=== PATIENT | male | born 1960 | race Caucasian/White ===

== ENCOUNTER → 2019-12-02 | Outpatient (CLI) | payer OTHER ==
[2019-12-02] MEDS: ALBUTEROL SULFATE 2.5 MG/3 ML NEBU. NEB ONE (08:10)
== END | disposition home or self-care (01) ==
LOC: PF 07:31
PROVIDERS: ATTEND Surgery
DX: R06.2 Wheezing (principal); R06.00 Dyspnea, unspecified; F17.210 Nicotine dependence, cigarettes, uncomplicated
CPT/HCPCS: 94060; 94640; J7613

== ENCOUNTER 2019-12-17 10:20 | Inpatient (IN) | payer SELFPAY ==
[~2019-12-17] VITALS: Ht 170.2 cm; Wt 107.8 kg
[2019-12-17] VITALS (9 sets, daily range): BP systolic 123–166; BP diastolic 66–110
[2019-12-17 11:09] LABS: BASO # 0.1 x10^3/uL (0.0-0.2); BASO % 2 % (0-3); EOS # 0.2 x10^3/uL (0.0-0.7); EOS % 3 % (0-3); HEMATOCRIT 48.9 % (39.0-53.0); HEMOGLOBIN 16.6 g/dL (13.0-17.5); LYMPH # 1.5 x10^3/uL (1.0-4.8); LYMPH % 19 % (24-48); MEAN CORPUSCULAR HEMOGLOBIN 32 pg (25-35); MEAN CORPUSCULAR HGB CONC 34 g/dL (31-37); MEAN CORPUSCULAR VOLUME 94 fL (79-100); MONO # 0.9 x10^3/uL (0.0-1.1); MONO % 11 % (0-9); NEUT # 5.3 x10^3/uL (1.8-7.7); NEUT % 67 % (31-73); PLATELET COUNT 176 x10^3/uL (140-400); RED BLOOD COUNT 5.22 x10^6/uL (4.30-5.70); RED CELL DISTRIBUTION WIDTH 14.3 % (11.5-14.5)
[2019-12-17 11:18] LABS: CREATININE 1.2 mg/dL (0.7-1.3); GFR 62.4; POTASSIUM 4.2 mmol/L (3.5-5.1); PROTHROMBIN TIME PATIENT 14.1 SEC (11.7-14.0)
[2019-12-17 11:24] LABS: ALBUMIN 2.8 g/dL (3.4-5.0); ALBUMIN/GLOBULIN RATIO 0.7 (1.0-1.7); TOTAL BILIRUBIN 0.5 mg/dL (0.2-1.0); TOTAL PROTEIN 6.8 g/dL (6.4-8.2)
--- NOTE | 2019-12-17 11:40 | RAD ---
AP chest. HISTORY: Short of breath AP view was taken of the chest. The heart is enlarged. There is no effusion. There is mild infiltrate in the medial right lung base. There is slight vascular congestion. There is no prior study for comparison. IMPRESSION: 1. Mild right lower lobe infiltrate. Electronically signed by: Ras Gr MD (12/17/2019 11:37 AM) [id number]
[2019-12-17 11:42] LABS: BARBITURATES NEG (NEG); BENZODIAZEPINES NEG (NEG); CANNABINOIDS NEG (NEG); COCAINE NEG (NEG); METHADONE NEG (NEG); OPIATES NEG (NEG); PHENCYCLIDINE NEG (NEG)
--- NOTE | 2019-12-17 11:43 | EKG ---
[facility] [address] [place] [address] Test Date: 2019-12-17 Test Time: 10:45:22 Pat Name: TRENT ALY Department: Room: Gender: M Dipper Fish: : 1960 Requested By: BERE GALVIN Order Number: [id number] Reading MD: Measurements Intervals [place] Rate: 105 P: 64 [place]: 176 QRS: -38 QRSD: 112 T: 49 QT: 362 QTc: 483 Interpretive Statements SINUS TACHYCARDIA LEFT ATRIAL ABNORMALITY ABNORMAL LEFT AXIS DEVIATION LEFT ANTERIOR FASCICULAR BLOCK RVH WITH REPOLARIZATION ABNORMALITY QRS(T) CONTOUR ABNORMALITY CONSIDER ANTEROSEPTAL MYOCARDIAL DAMAGE ABNORMAL ECG RI6.01 No previous ECG available for comparison
[2019-12-17 11:51] LABS: AMPHETAMINE/METHAMPHETAMINE POS (NEG)
[2019-12-17] MEDS ORDERED: dilTIAZem IV PUSH 25 MG/5 ML VIAL IVP ONE (12:00)
--- NOTE | 2019-12-17 12:07 | PHYS DOC ---
Past Medical History Past Medical History: Hypertension Past Surgical History: Other Additional Past Surgical Histo: RIGHT HAND ,LEFT FOOT Smoking Status: Current Some Day Smoker Alcohol Use: None Additional Information: PT REPORTS THAT HE WAS A HEAVY DRINKER X 2 YEARS AGO Adult General Chief Complaint Chief Complaint: SHORTNESS OF BREATH HPI HPI Patient is a 59 year old male who is presenting self presenting with shortness of breath and leg swelling for over a month now he said he is his abdomen feels very distended his legs are very very swollen he is more short of breath with minimal exertion as well as with lying flat. It is worse in the morning. No fever he is really not been coughing he said he had a dry cough about 1 time today only but no fever no infectious symptoms he is not having any sweats or chills either. Occasionally having sharp chest pain on the left. History of hypertension he takes medication for that he supposed to take medication for that actually although he has not been taking it recently he says. Review of Systems Review of Systems Constitutional: Denies fever or chills [] Eyes: Denies change in visual acuity, redness, or eye pain [] Musculoskeletal: Denies back pain or joint pain [] Integument: Denies rash or skin lesions [] Neurologic: Denies headache, focal weakness or sensory changes [] Endocrine: Denies polyuria or polydipsia [] All other systems were reviewed and found to be within normal limits, except as documented in this note. Current Medications Current Medications Current Medications Medications (Trade) Dose Ordered Sig/Maribel Start Time Stop Time Status Last Admin Dose Admin Diltiazem HCl (Cardizem Iv Push) 10 mg 1X ONCE 12/17/19 12:00 12/17/19 12:01 DC Diltiazem HCl 125 mg/Sodium Chloride 125 ml @ 5 mls/hr CONT PRN 12/17/19 12:00 Lorazepam (Ativan Inj) 0.5 mg 1X ONCE 12/17/19 12:00 12/17/19 12:01 DC Allergies Allergies Allergies Coded Allergies Type Severity Reaction Last Updated Verified Penicillins Allergy Intermediate Unknown 12/02/19 Yes Physical Exam Physical Exam Constitutional: Well developed, well nourished, n mild distress HENT: Normocephalic, atraumatic, bilateral external ears normal, oropharynx moist, no oral exudates, nose normal. [] Eyes: PERRLA, EOMI, conjunctiva normal, no discharge. [] Neck: Normal range of motion, no tenderness, supple, no stridor. [] Cardiovascular:Heart rate regular rhythm, difficult exam but no definite murmurs Lungs & Thorax: There is wheezing bilaterally patient is speaking full sentences however it sounds most like a cardiac wheeze to me. Given the tachycardia I opted not to give him nebs Abdomen: Bowel sounds normal, soft, no tenderness, no masses, no pulsatile masses. [] Anasarca noted Skin: Warm, dry, no erythema, no rash. [] Back: No tenderness, no CVA tenderness. [] Extremities: No tenderness, no cyanosis, no clubbing, ROM intact, 4+ edema bilaterally anasarca noted on the abdomen Neurologic: Alert and oriented X 3, normal motor function, normal sensory function, no focal deficits noted. [] Psychologic: Affect normal, judgement normal, mood normal. [] Current Patient Data Vital Signs Vital Signs Date Time Temp Pulse Resp B/P (MAP) Pulse Ox O2 Delivery O2 Flow Rate FiO2 12/17/19 11:02 97.6 114 24 159/115 (130) 95 Room Air 97.6 Lab Values Laboratory Tests Test 12/17/19 10:55 White Blood Count 8.0 x10^3/uL (4.0-11.0) Red Blood Count 5.22 x10^6/uL (4.30-5.70) Hemoglobin 16.6 g/dL (13.0-17.5) Hematocrit 48.9 % (39.0-53.0) Mean Corpuscular Volume 94 fL (79-100) Mean Corpuscular Hemoglobin 32 pg (25-35) Mean Corpuscular Hemoglobin Concent 34 g/dL (31-37) Red Cell Distribution Width 14.3 % (11.5-14.5) Platelet Count 176 x10^3/uL (140-400) Neutrophils (%) (Auto) 67 % (31-73) Lymphocytes (%) (Auto) 19 % (24-48) L Monocytes (%) (Auto) 11 % (0-9) H Eosinophils (%) (Auto) 3 % (0-3) Basophils (%) (Auto) 2 % (0-3) Neutrophils # (Auto) 5.3 x10^3/uL (1.8-7.7) Lymphocytes # (Auto) 1.5 x10^3/uL (1.0-4.8) Monocytes # (Auto) 0.9 x10^3/uL (0.0-1.1) Eosinophils # (Auto) 0.2 x10^3/uL (0.0-0.7) Basophils # (Auto) 0.1 x10^3/uL (0.0-0.2) Prothrombin Time 14.1 SEC (11.7-14.0) H Prothrombin Time INR 1.1 (0.8-1.1) Sodium Level 143 mmol/L (136-145) Potassium Level 4.2 mmol/L (3.5-5.1) Chloride Level 106 mmol/L (98-107) Carbon Dioxide Level 30 mmol/L (21-32) Anion Gap 7 (6-14) Blood Urea Nitrogen 18 mg/dL (8-26) Creatinine 1.2 mg/dL (0.7-1.3) Estimated GFR (Cockcroft-Gault) 62.4 BUN/Creatinine Ratio 15 (6-20) Glucose Level 112 mg/dL (70-99) H Calcium Level 9.0 mg/dL (8.5-10.1) Total Bilirubin 0.5 mg/dL (0.2-1.0) Aspartate Amino Transferase (AST) 32 U/L (15-37) Alanine Aminotransferase (ALT) 42 U/L (16-63) Alkaline Phosphatase 79 U/L (46-116) Troponin I Quantitative < 0.017 ng/mL (0.000-0.055) GD-Msy-D-Type Natriuretic Peptide 2786 pg/mL (0-124) H Total Protein 6.8 g/dL (6.4-8.2) Albumin 2.8 g/dL (3.4-5.0) L Albumin/Globulin Ratio 0.7 (1.0-1.7) L Urine Opiates Screen Neg (NEG) Urine Methadone Screen Neg (NEG) Urine Barbiturates Neg (NEG) Urine Phencyclidine Screen Neg (NEG) Urine Amphetamine/Methamphetamine Pos (NEG) Urine Benzodiazepines Screen Neg (NEG) Urine Cocaine Screen Neg (NEG) Urine Cannabinoids Screen Neg (NEG) Ethyl Alcohol Level < 10 mg/dL (0-10) Urine Ethyl Alcohol Neg (NEG) Laboratory Tests 12/17/19 10:55 Laboratory Tests 12/17/19 10:55 EKG EKG [] EKG #1 did show a sinus tachycardia with a rate of 105 there was no STEMI there were some ST changes anteriorly EKG #2 done at 11:26 AM after changing condition did show a heart rate of 153 it actually seems to be regular but it is going so fast that is hard to say with certainty a flutter is possible a fib is possible and sinus tachycardia are all possible I spoke with Dr. Humphrey ultimately we planned on diltiazem and go from there. Radiology/Procedures Radiology/Procedures [] Impressions: IMPRESSION: 1. Mild right lower lobe infiltrate. Electronically signed by: Ras Gr MD (12/17/2019 11:37 AM) [id number] DICTATED and SIGNED BY: RAS GR MD DATE: 12/17/19 1137 Course & Med Decision Making Course & Med Decision Making Pertinent Labs and Imaging studies reviewed. (See chart for details) [] 59-year-old male presenting with shortness of breath and anasarca x1 month. Lab work is suggestive of congestive heart failure as are his symptoms. Chest x-ray patient is having no fever really not coughing either. I do not think that he has clinical pneumonia. That could be atelectasis potentially. I think for now we should treat his congestive heart failure and go from there. Drug screen was positive for methamphetamine of note in the emergency room I get did give a small dose of Ativan as well for that. Dr. Ruiz did see the patient in the emergency room I did consult over the phone with Dr. Humphrey as well. After 10 of IV diltiazem the heart rate at 12:06 PM is 93. Dragon Disclaimer Dragon Disclaimer This electronic medical record was generated, in whole or in part, using a voice recognition dictation system. Departure Departure Impression: Primary Impression: Fluid overload Disposition: ADMITTED INPATIENT Admitting Physician: GAUTAM Condition: STABLE Referrals: NO PCP (PCP) BERE GALVIN MD Dec 17, 2019 12:07
[2019-12-17] MEDS ORDERED: FUROSEMIDE 20 MG/2 ML VIAL. IVP ONE (12:15)
--- NOTE | 2019-12-17 12:21 | PDOC2 ---
RAÚL CISNEROS [employer]ICER 12/17/19 1221: CARDIAC CONSULT DATE OF CONSULT Date of Consult DATE: 12/17/19 TIME: 12:19 REASON FOR CONSULT Reason for Consult: CHF Tachycardia REFERRING PHYSICIAN Referring Physician: Dr. Delcid SOURCE Source: Chart review, Patient HISTORY OF PRESENT ILLNESS HISTORY OF PRESENT ILLNESS This is a 59 yo male who presented secondary to shortness of breath and LE edema. Has had significant bilateral upper and lower extremity edema for the last month. Has progressively worsened. Abdomen edematous. Reports chronic SOA over the last year. Has had dry cough. Coughs so hard he feels like he could pass out occasionally. Also reports intermittent brief sharp pain in his left chest. Is very poor historian. Denies any history of CHF, but reports he was treated with Lasix gtt at [facility] previously. Has history of cirrhosis and Hepatits C. Has noticed some yellowing of skin. Report he has not taken any medications in some time. 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 Quit 2 years ago) Drugs: Marijuana, Crystal meth Lives: with Family CURRENT MEDICATIONS CURRENT MEDICATIONS Current Medications Medications (Trade) Dose Ordered Sig/Maribel Route PRN Reason Start Time Stop Time Status Last Admin Dose Admin Diltiazem HCl (Cardizem Iv Push) 10 mg 1X ONCE IVP 12/17/19 12:00 12/17/19 12:01 DC 12/17/19 12:01 Lorazepam (Ativan Inj) 0.5 mg 1X ONCE IVP 12/17/19 12:00 12/17/19 12:01 DC 12/17/19 12:00 Furosemide (Lasix) 20 mg 1X ONCE IVP 12/17/19 12:15 12/17/19 12:16 DC 12/17/19 12:10 ALLERGIES ALLERGIES: Coded Allergies: Penicillins (Verified Allergy, Intermediate, Unknown, 12/02/19) HAD REACTION WHEN CHILD. DOESN'T REMEMBER REACTION, BUT WAS TOLD THAT HE WAS ALLERGIC TO PENICILLINS. ROS Review of System 14 point ROS conducted with pertinent positives noted above in HPI PHYSICAL EXAM General: Alert, Oriented X3, Cooperative, mild distress HEENT: Atraumatic, Mucous membr. moist/pink Lungs: Other (crackles ) Heart: Regular rate (SR rate 90) Abdomen: Other (distended ) Extremities: Other (2-3+ bilateral upper and lower extremity edema. anasarca ) Skin: No significant lesion Neuro: Normal speech, Sensation intact Psych/Mental Status: Mental status NL, Mood NL MUSCULOSKELETAL: Osteoarthritic changes both hands VITALS/I&O VITALS/I&O: Vital Signs Date Time Temp Pulse Resp B/P (MAP) Pulse Ox O2 Delivery O2 Flow Rate FiO2 12/17/19 12:01 134 153/90 12/17/19 11:02 97.6 24 95 Room Air 97.6 LABS Lab: Laboratory Tests Test 12/17/19 10:55 White Blood Count 8.0 x10^3/uL (4.0-11.0) Red Blood Count 5.22 x10^6/uL (4.30-5.70) Hemoglobin 16.6 g/dL (13.0-17.5) Hematocrit 48.9 % (39.0-53.0) Mean Corpuscular Volume 94 fL (79-100) Mean Corpuscular Hemoglobin 32 pg (25-35) Mean Corpuscular Hemoglobin Concent 34 g/dL (31-37) Red Cell Distribution Width 14.3 % (11.5-14.5) Platelet Count 176 x10^3/uL (140-400) Neutrophils (%) (Auto) 67 % (31-73) Lymphocytes (%) (Auto) 19 % (24-48) L Monocytes (%) (Auto) 11 % (0-9) H Eosinophils (%) (Auto) 3 % (0-3) Basophils (%) (Auto) 2 % (0-3) Neutrophils # (Auto) 5.3 x10^3/uL (1.8-7.7) Lymphocytes # (Auto) 1.5 x10^3/uL (1.0-4.8) Monocytes # (Auto) 0.9 x10^3/uL (0.0-1.1) Eosinophils # (Auto) 0.2 x10^3/uL (0.0-0.7) Basophils # (Auto) 0.1 x10^3/uL (0.0-0.2) Prothrombin Time 14.1 SEC (11.7-14.0) H Prothrombin Time INR 1.1 (0.8-1.1) Sodium Level 143 mmol/L (136-145) Potassium Level 4.2 mmol/L (3.5-5.1) Chloride Level 106 mmol/L (98-107) Carbon Dioxide Level 30 mmol/L (21-32) Anion Gap 7 (6-14) Blood Urea Nitrogen 18 mg/dL (8-26) Creatinine 1.2 mg/dL (0.7-1.3) Estimated GFR (Cockcroft-Gault) 62.4 BUN/Creatinine Ratio 15 (6-20) Glucose Level 112 mg/dL (70-99) H Calcium Level 9.0 mg/dL (8.5-10.1) Total Bilirubin 0.5 mg/dL (0.2-1.0) Aspartate Amino Transferase (AST) 32 U/L (15-37) Alanine Aminotransferase (ALT) 42 U/L (16-63) Alkaline Phosphatase 79 U/L (46-116) Troponin I Quantitative < 0.017 ng/mL (0.000-0.055) NC-Pha-C-Type Natriuretic Peptide 2786 pg/mL (0-124) H Total Protein 6.8 g/dL (6.4-8.2) Albumin 2.8 g/dL (3.4-5.0) L Albumin/Globulin Ratio 0.7 (1.0-1.7) L Urine Opiates Screen Neg (NEG) Urine Methadone Screen Neg (NEG) Urine Barbiturates Neg (NEG) Urine Phencyclidine Screen Neg (NEG) Urine Amphetamine/Methamphetamine Pos (NEG) Urine Benzodiazepines Screen Neg (NEG) Urine Cocaine Screen Neg (NEG) Urine Cannabinoids Screen Neg (NEG) Ethyl Alcohol Level < 10 mg/dL (0-10) Urine Ethyl Alcohol Neg (NEG) Laboratory Tests 12/17/19 10:55 Laboratory Tests 12/17/19 10:55 STRESS TEST STRESS TEST 04/30/15 - Procedure: GATED REGADENOSON THALLIUM MPI STRESS TEST SUMMARY/OPINION: This study is normal with no evidence of significant myocardial ischemia or prior injury. Left ventricular systolic function is normal. There are no high risk prognostic indicators present. The ECG portion of the study is negative for ischemia. ASSESSMENT/PLAN ASSESSMENT/PLAN 1. Acute respiratory failure with acute CHF, AECOPD, and possible PNA 2. Acute on chronic CHF 3. Chest pain, atypical. Initial trop negative. 4. Arrhythmia; EKG with atrial tach vs 2:1 atrial flutter with RVR; on Cardizem gtt. 5. Hypertension; has been off all meds for months 6. Diabetes, II 7. Liver disease, Hep C, jaundiced 8. H/o heavy ETOH use 9. Tobaccoism 10. Substance abuse; UDS + methamphetamines. Admits to marijuana use and occasional meth use. H/o cocaine and heroine use many years ago 11. Noncompliance Recommendation Diuresis Echo to assess LV systolic function Cardizem for rate control ASA therapy TSH, lipids Trend troponin Discussed and encourage cessation from tobacco/methamphetamines/marijuana. Obtain cardiac records from most recent hospitalization at [facility]. Was on Lasix gtt at that time Further pending above Consider outpatient event monitor TIGIST GUARDADO MD 12/17/19 1533: CARDIAC CONSULT ASSESSMENT/PLAN ASSESSMENT/PLAN Patient seen and examined Acute respiratory factor failure with factors including heart failure, COPD and possibly pneumonia. Echo to evaluate LV function. Mild diuresis with monitoring of lab. Acute on chronic probable systolic heart failure. Diuresis and echo as noted above. We'll attempt to find old records from [facility]. Chest pain. Atypical. Largely resolved. We'll trend troponin with initial trop onin negative. Initial arrhythmia. Rates to 150 with possible atrial tachycardia. Now sinus rhythm with rates in at 90. Continue to monitor. Hypertension. Noncompliant with medications. We'll add an oral medications as needed. Liver disease with hepatitis C. History of substance abuse. History of noncompliance. Thank you for allowing us to participate in the care of your patient. AMELIAPIYUSHRAÚL NATASHA Dec 17, 2019 12:21 TIGIST GUARDADO MD Dec 17, 2019 15:33
--- NOTE | 2019-12-17 12:43 | PDOC1 ---
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 Now has associated orthopnea and PND. Has a dry, non- productive cough. He has not been taking his meds for HTN. No fever no infectious symptoms he is not having any sweats or chills either. Occasionally having sharp chest pain on the left. He notes he has been experiencing dizziness lately with his coughs as well and states he thinks he passed out a few weeks ago. He notes he drank heavily until 5 years ago, but still drinks nearly daily currently. He notes this past Sunday12/12/2019 he saw a disability physician for examination and was instructed to head straight to the ED. Historically he gives a non-linear history, states he has been seen by pulmonology and cardiology, but is not aware of any diagnosis of CHF, CAD, or COPD. States his last stress test was at [facility] 2 years ago, but notes he has been at [facility] and [facility] as well in the past 2 years for similar symptoms. In ED his BNP was 2786. CXR with bilateral edema and read as right middle lobe infiltrate. Troponin negative. UDS positive for amphetamines. EKG with rate of 105 there was no STEMI there were some ST changes anteriorly, and a repeat EKG showed HR 153, was given diltiazem bolus and infusion for concern for atrial flutter. 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 Quit 2 years ago) Drugs: Cocaine, Crystal meth Current Problem List Problem List Problems Medical Problems: (1) Fluid overload Status: Acute Current Medications Current Medications Current Medications Diltiazem HCl (Cardizem Iv Push) 10 mg 1X ONCE IVP Last administered on 12/17/19at 12:01; Start 12/17/19 at 12:00; Stop 12/17/19 at 12:01; Status DC Lorazepam (Ativan Inj) 0.5 mg 1X ONCE IVP Last administered on 12/17/19at 12:00; Start 12/17/19 at 12:00; Stop 12/17/19 at 12:01; Status DC Diltiazem HCl 125 mg/Sodium Chloride 125 ml @ 5 mls/hr CONT PRN IV SEE I/O RECORD; Start 12/17/19 at 12:00 Furosemide (Lasix) 20 mg 1X ONCE IVP Last administered on 12/17/19at 12:10; Start 12/17/19 at 12:15; Stop 12/17/19 at 12:16; Status DC Allergies Allergies: Coded Allergies: Penicillins (Verified Allergy, Intermediate, Unknown, 12/02/19) HAD REACTION WHEN CHILD. DOESN'T REMEMBER REACTION, BUT WAS TOLD THAT HE WAS ALLERGIC TO PENICILLINS. ROS General: YES: Fatigue, Malaise; No: Chills, Night Sweats, Appetite, Other PSYCHOLOGICAL ROS: YES: Anxiety; No: Behavioral Disorder, Concentration difficultie, Decreased libido, Depression, Disorientation, Hallucinations, Hostility, Irritablity, Memory difficulties, Mood Swings, Obsessive thoughts, Physical abuse, Sexual abuse, Sleep disturbances, Suicidal ideation, Other Eyes: No Blurry vision, No Decreased vision, No Double vision, No Dry eyes, No Excessive tearing, No Eye Pain, No Itchy Eyes, No Loss of vision, No Photophobia, No Scotomata, No Uses contacts, No Uses glasses, No Other HEENT: No: Heacaches, Visual Changes, Hearing change, Nasal congestion, Nasal discharge, Oral lesions, Sinus pain, Sore Throat, Epistaxis, Sneezing, Snoring, Tinnitus, Vertigo, Vocal changes, Other ALLERGY AND IMMUNOLOGY: No: Hives, Insect Bite Sensitivity, Itchy/Watery Eyes, Nasal Congestion, Post Nasal Drip, Seasonal Allergies, Other Hematological and Lymphatic: No: Bleeding Problems, Blood Clots, Blood Transfusions, Brusing, Night Sweats, Pallor, Swollen Lymph Nodes, Other ENDOCRINE: No: Breast Changes, Galactorrhea, Hair Pattern Changes, Hot Flashes, Malaise/lethargy, Mood Swings, Palpitations, Polydipsia/polyuria, Skin Changes, Temperature Intolerance, Unexpected Weight Changes, Other Breast: No New/Changing Breast Lumps, No Nipple changes, No Nipple discharge, No Other Respiratory: YES: Cough, Orthopnea, Pleuritic Pain, Shortness of breath, SOB with excertion, Tachypnea, Wheezing; No: Hemoptysis, Sputum Changes, Stridor, Other Cardiovascular: yes Chest Pain, yes Orthopnea, yes Paroxysmal Noc. Dyspnea, yes Edema; No Palpitations, No Lt Headedness, No Other Gastrointestinal: No Nausea, No Vomiting, No Abdominal Pain, No Diarrhea, No Constipation, No Melena, No Hematochezia, No Other Genitourinary: No Dysuria, No Frequency, No Incontinence, No Hematuria, No Retention, No Discharge, No Urgency, No Pain, No Flank Pain, No Other, No , No , No , No , No , No , No Neurological: No Behavorial Changes, No Bowel/Bladder ControlChng, No Confusion, No Dizziness, No Gait Disturbance, No Headaches, No Impaired Coord/balance, No Memory Loss, No Numbness/Tingling, No Seizures, No Speech Problems, No Tremors, No Visual Changes, No Weakness, No Other Skin: Yes Dry Skin, Yes Hair Changes, Yes Skin Lesion Changes, Yes Other (Stasis dermatitis); No Eczema, No Lumps, No Mole Changes, No Mottling, No Nail Changes, No Pruritus, No Rash, No Acne Physical Exam General: Alert, Oriented X3, Cooperative, mild distress HEENT: Atraumatic, PERRLA, EOMI, Mucous membr. moist/pink Lungs: Other (Wheezing bilaterally. Bibasilar crackles) Heart: irregularly irregular Abdomen: Normal bowel sounds, Soft, No tenderness, No hepatosplenomegaly, No masses Rectal Exam: not examined Extremities: No clubbing, No cyanosis, Other (2+ edema, pitting) Skin: No significant lesion, Other (Stasis dermatitis bilaterally) Neuro: Normal gait, Normal speech, Strength at 5/5 X4 ext, Normal tone, Sensation intact, Cranial nerves 3-12 NL, Reflexes 2+ Psych/Mental Status: Mental status NL, Mood NL Vitals Vitals Vital Signs Date Time Temp Pulse Resp B/P (MAP) Pulse Ox O2 Delivery O2 Flow Rate FiO2 3/18/20 12:01 134 153/90 12/17/19 11:02 97.6 24 95 Room Air 97.6 Labs Labs Laboratory Tests Test 12/17/19 10:55 White Blood Count 8.0 x10^3/uL (4.0-11.0) Red Blood Count 5.22 x10^6/uL (4.30-5.70) Hemoglobin 16.6 g/dL (13.0-17.5) Hematocrit 48.9 % (39.0-53.0) Mean Corpuscular Volume 94 fL (79-100) Mean Corpuscular Hemoglobin 32 pg (25-35) Mean Corpuscular Hemoglobin Concent 34 g/dL (31-37) Red Cell Distribution Width 14.3 % (11.5-14.5) Platelet Count 176 x10^3/uL (140-400) Neutrophils (%) (Auto) 67 % (31-73) Lymphocytes (%) (Auto) 19 % (24-48) Monocytes (%) (Auto) 11 % (0-9) Eosinophils (%) (Auto) 3 % (0-3) Basophils (%) (Auto) 2 % (0-3) Neutrophils # (Auto) 5.3 x10^3/uL (1.8-7.7) Lymphocytes # (Auto) 1.5 x10^3/uL (1.0-4.8) Monocytes # (Auto) 0.9 x10^3/uL (0.0-1.1) Eosinophils # (Auto) 0.2 x10^3/uL (0.0-0.7) Basophils # (Auto) 0.1 x10^3/uL (0.0-0.2) Prothrombin Time 14.1 SEC (11.7-14.0) Prothromb Time International Ratio 1.1 (0.8-1.1) Sodium Level 143 mmol/L (136-145) Potassium Level 4.2 mmol/L (3.5-5.1) Chloride Level 106 mmol/L (98-107) Carbon Dioxide Level 30 mmol/L (21-32) Anion Gap 7 (6-14) Blood Urea Nitrogen 18 mg/dL (8-26) Creatinine 1.2 mg/dL (0.7-1.3) Estimated GFR (Cockcroft-Gault) 62.4 BUN/Creatinine Ratio 15 (6-20) Glucose Level 112 mg/dL (70-99) Calcium Level 9.0 mg/dL (8.5-10.1) Total Bilirubin 0.5 mg/dL (0.2-1.0) Aspartate Amino Transf (AST/SGOT) 32 U/L (15-37) Alanine Aminotransferase (ALT/SGPT) 42 U/L (16-63) Alkaline Phosphatase 79 U/L (46-116) Troponin I Quantitative < 0.017 ng/mL (0.000-0.055) WL-Bbe-N-Type Natriuretic Peptide 2786 pg/mL (0-124) Total Protein 6.8 g/dL (6.4-8.2) Albumin 2.8 g/dL (3.4-5.0) Albumin/Globulin Ratio 0.7 (1.0-1.7) Urine Opiates Screen Neg (NEG) Urine Methadone Screen Neg (NEG) Urine Barbiturates Neg (NEG) Urine Phencyclidine Screen Neg (NEG) Urine Amphetamine/Methamphetamine Pos (NEG) Urine Benzodiazepines Screen Neg (NEG) Urine Cocaine Screen Neg (NEG) Urine Cannabinoids Screen Neg (NEG) Ethyl Alcohol Level < 10 mg/dL (0-10) Urine Ethyl Alcohol Neg (NEG) Laboratory Tests Test 12/17/19 10:55 White Blood Count 8.0 x10^3/uL (4.0-11.0) Red Blood Count 5.22 x10^6/uL (4.30-5.70) Hemoglobin 16.6 g/dL (13.0-17.5) Hematocrit 48.9 % (39.0-53.0) Mean Corpuscular Volume 94 fL (79-100) Mean Corpuscular Hemoglobin 32 pg (25-35) Mean Corpuscular Hemoglobin Concent 34 g/dL (31-37) Red Cell Distribution Width 14.3 % (11.5-14.5) Platelet Count 176 x10^3/uL (140-400) Neutrophils (%) (Auto) 67 % (31-73) Lymphocytes (%) (Auto) 19 % (24-48) Monocytes (%) (Auto) 11 % (0-9) Eosinophils (%) (Auto) 3 % (0-3) Basophils (%) (Auto) 2 % (0-3) Neutrophils # (Auto) 5.3 x10^3/uL (1.8-7.7) Lymphocytes # (Auto) 1.5 x10^3/uL (1.0-4.8) Monocytes # (Auto) 0.9 x10^3/uL (0.0-1.1) Eosinophils # (Auto) 0.2 x10^3/uL (0.0-0.7) Basophils # (Auto) 0.1 x10^3/uL (0.0-0.2) Prothrombin Time 14.1 SEC (11.7-14.0) Prothromb Time International Ratio 1.1 (0.8-1.1) Sodium Level 143 mmol/L (136-145) Potassium Level 4.2 mmol/L (3.5-5.1) Chloride Level 106 mmol/L (98-107) Carbon Dioxide Level 30 mmol/L (21-32) Anion Gap 7 (6-14) Blood Urea Nitrogen 18 mg/dL (8-26) Creatinine 1.2 mg/dL (0.7-1.3) Estimated GFR (Cockcroft-Gault) 62.4 BUN/Creatinine Ratio 15 (6-20) Glucose Level 112 mg/dL (70-99) Calcium Level 9.0 mg/dL (8.5-10.1) Total Bilirubin 0.5 mg/dL (0.2-1.0) Aspartate Amino Transf (AST/SGOT) 32 U/L (15-37) Alanine Aminotransferase (ALT/SGPT) 42 U/L (16-63) Alkaline Phosphatase 79 U/L (46-116) Troponin I Quantitative < 0.017 ng/mL (0.000-0.055) AQ-Gxw-P-Type Natriuretic Peptide 2786 pg/mL (0-124) Total Protein 6.8 g/dL (6.4-8.2) Albumin 2.8 g/dL (3.4-5.0) Albumin/Globulin Ratio 0.7 (1.0-1.7) Urine Opiates Screen Neg (NEG) Urine Methadone Screen Neg (NEG) Urine Barbiturates Neg (NEG) Urine Phencyclidine Screen Neg (NEG) Urine Amphetamine/Methamphetamine Pos (NEG) Urine Benzodiazepines Screen Neg (NEG) Urine Cocaine Screen Neg (NEG) Urine Cannabinoids Screen Neg (NEG) Ethyl Alcohol Level < 10 mg/dL (0-10) Urine Ethyl Alcohol Neg (NEG) Images Images CXR - AP view was taken of the chest. The heart is enlarged. There is no effusion. There is mild infiltrate in the medial right lung base. There is slight vascular congestion. There is no prior study for comparison. IMPRESSION: 1. Mild right lower lobe infiltrate. VTE Prophylaxis Ordered VTE Prophylaxis Devices: No VTE Pharmacological Prophylaxi: Yes Assessment/Plan Assessment/Plan A/P: Shortness of breath - multifactorial, possible reactive airway disease/COPD with smoking history as well as findings consistent with pulmonary edema from CHF. I have lower suspicion for pneumonia, though there is infiltrate. Will dihilarye, order nebs. Consult cardiology. Check procalcitonin Chest pain - likely from acute CHF exacerbation and possible costochondritis from bronchitis. Will trend troponins Atrial arrhythmia - possibly atrial flutter. Will cont diltiazem infusion and repeat EKG. 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 Counseled that this is not sustained remission h/o Hep C s/p SVR with angel in 2017 - notes he has had viral titres that were negative 3 years ago. FEN - Cardiac diet PPX - Lovenox FULL CODE Dispo - CVC for CHF at least 2 midnights WILLARD BARRERA MD Dec 17, 2019 12:43
[2019-12-17] MEDS ORDERED: IPRATRPIUM/ALBUTEROL 0.5/2.5MG 3 ML NEBU. NEB PRN (13:00)
[2019-12-17] MEDS ORDERED: ALBUTEROL SULFATE 2.5 MG/3 ML NEBU. NEB PRN (13:00)
[2019-12-17] MEDS ORDERED: ASPIRIN 325 MG TABLET PO ONE (13:00)
[2019-12-17] MEDS ORDERED: ACETAMINOPHEN 650 MG SUPP.RECT. PR PRN (13:00)
[2019-12-17] MEDS ORDERED: ONDANSETRON PF 4 MG/2 ML VIAL. IV PRN (13:00)
[2019-12-17] MEDS ORDERED: DOCUSATE SODIUM 100 MG CAPSULE. PO PRN (13:00)
[2019-12-17] MEDS: dilTIAZem INJ 125 MG in IV NORMAL SALINE 100ML 100 ML IV PRN (14:22)
[2019-12-17] MEDS: FUROSEMIDE 40 MG/4 ML VIAL. IVP SCH (16:14)
[2019-12-17] MEDS: POTASSIUM CHLORIDE 20 MEQ TABLET.ER. PO SCH (16:14)
[2019-12-17] MEDS: IPRATRPIUM/ALBUTEROL 0.5/2.5MG 3 ML NEBU. NEB SCH ×2 (18:38→20:14)
--- NOTE | 2019-12-17 19:32 | PDOC ---
PULMONARY PROGRESS NOTES Vitals Vital Signs Date Time Temp Pulse Resp B/P (MAP) Pulse Ox O2 Delivery O2 Flow Rate FiO2 12/17/19 18:31 97.4 92 16 123/66 (85) 92 Nasal Cannula 2.0 97.4 Labs Laboratory Tests Test 12/17/19 10:55 12/17/19 15:15 12/17/19 17:55 White Blood Count 8.0 x10^3/uL (4.0-11.0) Red Blood Count 5.22 x10^6/uL (4.30-5.70) Hemoglobin 16.6 g/dL (13.0-17.5) Hematocrit 48.9 % (39.0-53.0) Mean Corpuscular Volume 94 fL (79-100) Mean Corpuscular Hemoglobin 32 pg (25-35) Mean Corpuscular Hemoglobin Concent 34 g/dL (31-37) Red Cell Distribution Width 14.3 % (11.5-14.5) Platelet Count 176 x10^3/uL (140-400) Neutrophils (%) (Auto) 67 % (31-73) Lymphocytes (%) (Auto) 19 % (24-48) Monocytes (%) (Auto) 11 % (0-9) Eosinophils (%) (Auto) 3 % (0-3) Basophils (%) (Auto) 2 % (0-3) Neutrophils # (Auto) 5.3 x10^3/uL (1.8-7.7) Lymphocytes # (Auto) 1.5 x10^3/uL (1.0-4.8) Monocytes # (Auto) 0.9 x10^3/uL (0.0-1.1) Eosinophils # (Auto) 0.2 x10^3/uL (0.0-0.7) Basophils # (Auto) 0.1 x10^3/uL (0.0-0.2) Prothrombin Time 14.1 SEC (11.7-14.0) Prothromb Time International Ratio 1.1 (0.8-1.1) Sodium Level 143 mmol/L (136-145) Potassium Level 4.2 mmol/L (3.5-5.1) Chloride Level 106 mmol/L (98-107) Carbon Dioxide Level 30 mmol/L (21-32) Anion Gap 7 (6-14) Blood Urea Nitrogen 18 mg/dL (8-26) Creatinine 1.2 mg/dL (0.7-1.3) Estimated GFR (Cockcroft-Gault) 62.4 BUN/Creatinine Ratio 15 (6-20) Glucose Level 112 mg/dL (70-99) Calcium Level 9.0 mg/dL (8.5-10.1) Total Bilirubin 0.5 mg/dL (0.2-1.0) Aspartate Amino Transf (AST/SGOT) 32 U/L (15-37) Alanine Aminotransferase (ALT/SGPT) 42 U/L (16-63) Alkaline Phosphatase 79 U/L (46-116) Troponin I Quantitative < 0.017 ng/mL (0.000-0.055) 0.045 ng/mL (0.000-0.055) < 0.017 ng/mL (0.000-0.055) LI-Tew-O-Type Natriuretic Peptide 2786 pg/mL (0-124) Total Protein 6.8 g/dL (6.4-8.2) Albumin 2.8 g/dL (3.4-5.0) Albumin/Globulin Ratio 0.7 (1.0-1.7) Triglycerides Level 86 mg/dL (0-150) Cholesterol Level 103 mg/dL (0-200) LDL Cholesterol, Calculated 52 mg/dL (0-100) VLDL Cholesterol, Calculated 17 mg/dL (0-40) Non-HDL Cholesterol Calculated 69 mg/dL (0-129) HDL Cholesterol 34 mg/dL (40-60) Cholesterol/HDL Ratio 3.0 Procalcitonin < 0.10 ng/mL (0.00-0.10) Thyroid Stimulating Hormone (TSH) 2.134 uIU/mL (0.358-3.74) Urine Opiates Screen Neg (NEG) Urine Methadone Screen Neg (NEG) Urine Barbiturates Neg (NEG) Urine Phencyclidine Screen Neg (NEG) Urine Amphetamine/Methamphetamine Pos (NEG) Urine Benzodiazepines Screen Neg (NEG) Urine Cocaine Screen Neg (NEG) Urine Cannabinoids Screen Neg (NEG) Ethyl Alcohol Level < 10 mg/dL (0-10) Urine Ethyl Alcohol Neg (NEG) Laboratory Tests Test 12/17/19 10:55 12/17/19 15:15 12/17/19 17:55 White Blood Count 8.0 x10^3/uL (4.0-11.0) Red Blood Count 5.22 x10^6/uL (4.30-5.70) Hemoglobin 16.6 g/dL (13.0-17.5) Hematocrit 48.9 % (39.0-53.0) Mean Corpuscular Volume 94 fL (79-100) Mean Corpuscular Hemoglobin 32 pg (25-35) Mean Corpuscular Hemoglobin Concent 34 g/dL (31-37) Red Cell Distribution Width 14.3 % (11.5-14.5) Platelet Count 176 x10^3/uL (140-400) Neutrophils (%) (Auto) 67 % (31-73) Lymphocytes (%) (Auto) 19 % (24-48) Monocytes (%) (Auto) 11 % (0-9) Eosinophils (%) (Auto) 3 % (0-3) Basophils (%) (Auto) 2 % (0-3) Neutrophils # (Auto) 5.3 x10^3/uL (1.8-7.7) Lymphocytes # (Auto) 1.5 x10^3/uL (1.0-4.8) Monocytes # (Auto) 0.9 x10^3/uL (0.0-1.1) Eosinophils # (Auto) 0.2 x10^3/uL (0.0-0.7) Basophils # (Auto) 0.1 x10^3/uL (0.0-0.2) Prothrombin Time 14.1 SEC (11.7-14.0) Prothromb Time International Ratio 1.1 (0.8-1.1) Sodium Level 143 mmol/L (136-145) Potassium Level 4.2 mmol/L (3.5-5.1) Chloride Level 106 mmol/L (98-107) Carbon Dioxide Level 30 mmol/L (21-32) Anion Gap 7 (6-14) Blood Urea Nitrogen 18 mg/dL (8-26) Creatinine 1.2 mg/dL (0.7-1.3) Estimated GFR (Cockcroft-Gault) 62.4 BUN/Creatinine Ratio 15 (6-20) Glucose Level 112 mg/dL (70-99) Calcium Level 9.0 mg/dL (8.5-10.1) Total Bilirubin 0.5 mg/dL (0.2-1.0) Aspartate Amino Transf (AST/SGOT) 32 U/L (15-37) Alanine Aminotransferase (ALT/SGPT) 42 U/L (16-63) Alkaline Phosphatase 79 U/L (46-116) Troponin I Quantitative < 0.017 ng/mL (0.000-0.055) 0.045 ng/mL (0.000-0.055) < 0.017 ng/mL (0.000-0.055) JR-Guf-M-Type Natriuretic Peptide 2786 pg/mL (0-124) Total Protein 6.8 g/dL (6.4-8.2) Albumin 2.8 g/dL (3.4-5.0) Albumin/Globulin Ratio 0.7 (1.0-1.7) Triglycerides Level 86 mg/dL (0-150) Cholesterol Level 103 mg/dL (0-200) LDL Cholesterol, Calculated 52 mg/dL (0-100) VLDL Cholesterol, Calculated 17 mg/dL (0-40) Non-HDL Cholesterol Calculated 69 mg/dL (0-129) HDL Cholesterol 34 mg/dL (40-60) Cholesterol/HDL Ratio 3.0 Procalcitonin < 0.10 ng/mL (0.00-0.10) Thyroid Stimulating Hormone (TSH) 2.134 uIU/mL (0.358-3.74) Urine Opiates Screen Neg (NEG) Urine Methadone Screen Neg (NEG) Urine Barbiturates Neg (NEG) Urine Phencyclidine Screen Neg (NEG) Urine Amphetamine/Methamphetamine Pos (NEG) Urine Benzodiazepines Screen Neg (NEG) Urine Cocaine Screen Neg (NEG) Urine Cannabinoids Screen Neg (NEG) Ethyl Alcohol Level < 10 mg/dL (0-10) Urine Ethyl Alcohol Neg (NEG) Impression . FULL NOTE DICTATED THANKS SEE ORDERS AGREE TO TREAT FOR CHF AND PNEUMONIA TORREY RIGGS MD Dec 17, 2019 19:32
[2019-12-17] MEDS: ATORVASTATIN CALCIUM 20 MG TABLET PO SCH (20:03)
[2019-12-18] VITALS (11 sets, daily range): BP systolic 119–174; BP diastolic 79–98
--- NOTE | 2019-12-18 02:45 | CONS ---
DATE OF CONSULTATION: 12/17/2019 ATTENDING PHYSICIAN: John Santos MD REASON FOR CONSULTATION: The patient seen in pulmonary consultation at the request of Dr. Santos for shortness of air, abnormal x-ray. HISTORY OF PRESENT ILLNESS: The patient is a 59-year-old man with multiple comorbidities. Unfortunately, he is self-insured and does not see a physician on a regular basis. He comes in with history of hypertension, IV drug use, alcohol abuse in remission, Hepatitis C. He has had progressive shortness of air and lower extremity edema for the past 3-4 weeks. He comes in with increasing shortness of breath. He reports he was treated at [facility] previously with IV Lasix. He has a history of CHF. He had a chest x-ray, which revealed mild right lower lobe infiltrate. I was asked to see him in consultation. He is currently being treated for acute CHF. He is currently on no antibiotics. PAST MEDICAL HISTORY: Remarkable for chronic heart failure, hypertension, COPD, hepatitis C, depression, osteoarthritis, diabetes, polysubstance use, previous IV drug use. PAST SURGICAL HISTORY: Previous amputation of the toes in the left foot. FAMILY HISTORY: Cancer, coronary artery disease. SOCIAL HISTORY: He continues to smoke. Denies any illicit drugs. At this time, he states he quit alcohol 2 years ago. He has had previous marijuana and methamphetamine use. REVIEW OF SYSTEMS: As indicated above, otherwise, a 10-point system was reviewed and negative. PHYSICAL EXAMINATION: VITAL SIGNS: Stable. O2 saturation greater than 92%, currently on 2 liters. HEENT: Eyes: The sclerae were nonicteric. NECK: Jugular venous distention could not be assessed secondary to body habitus. CHEST: Full expansion. LUNGS: Crackles throughout both lung peters. CARDIOVASCULAR: Regular rate and rhythm with S1, S2, no S3. ABDOMEN: Soft, nontender, nondistended. EXTREMITIES: No clubbing, cyanosis or significant edema. NEUROLOGIC: The patient was awake, alert, following commands. A detailed neuro exam was not performed. LABORATORY DATA: Reviewed. White count was normal. Hemoglobin and hematocrit were noted. Troponin level was not elevated. BNP was elevated. BUN and creatinine were normal. Albumin was low. Toxicology screen was positive for amphetamine. IMPRESSION: 1. Acute hypoxemic respiratory failure. 2. Acute on chronic systolic heart failure. 3. Chest pain. 4. Possible pneumonia. 5. Arrhythmia. 6. Acute exacerbation of chronic obstructive pulmonary disease. 7. Tobacco abuse. 8. Positive drug screen for methamphetamine. PLAN: 1. I agree with continued diuresis. 2. Follow Cardiology input. 3. Echocardiogram. 4. Empiric antibiotics. 5. Controlled rate. I do appreciate the privilege in sharing in the patient's care. TORREY RIGGS MD DR: ALBINO/abad JOB#: [id number] / [id number]
[2019-12-18] MEDS: IPRATRPIUM/ALBUTEROL 0.5/2.5MG 3 ML NEBU. NEB SCH ×4 (07:42→21:05)
[2019-12-18] MEDS: POTASSIUM CHLORIDE 20 MEQ TABLET.ER. PO SCH (08:41)
[2019-12-18] MEDS: ASPIRIN ENTERIC COATED 81 MG TABLET.DR. PO SCH (08:41)
[2019-12-18] MEDS: FUROSEMIDE 40 MG/4 ML VIAL. IVP SCH ×2 (08:42→14:34)
--- NOTE | 2019-12-18 08:46 | PDOC ---
PROGRESS NOTES Chief Complaint Chief Complaint A/P: Shortness of breath - multifactorial, possible reactive airway disease/COPD with smoking history as well as findings consistent with pulmonary edema from CHF. I have lower suspicion for pneumonia, though there is infiltrate. Will isai, ordered nebs. Consult cardiology and pulmonology Chest pain - likely from acute CHF exacerbation and possible costochondritis from bronchitis. negative trend on troponins Atrial arrhythmia - possibly atrial flutter. Will cont diltiazem infusion and repeat EKG. 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 Counseled that this is not sustained remission h/o Hep C s/p SVR with [facility] in 2017 - notes he has had viral titres that were negative 3 years ago. 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 Now has associated orthopnea and PND. Has a dry, non- productive cough. He has not been taking his meds for HTN. No fever no infectious symptoms he is not having any sweats or chills either. Occasionally having sharp chest pain on the left. He notes he has been experiencing dizziness lately with his coughs as well and states he thinks he passed out a few weeks ago. He notes he drank heavily until 5 years ago, but still drinks nearly daily currently. He notes this past Sunday12/12/2019 he saw a disability physician for [employer] and was instructed to head straight to the ED. Historically he gives a non-linear history, states he has been seen by pul monology and cardiology, but is not aware of any diagnosis of CHF, CAD, or COPD. States his last stress test was at [facility] 2 years ago, but notes he has been at [facility] and [facility] as well in the past 2 years for similar symptoms. In ED his BNP was 2786. CXR with bilateral edema and read as right middle lobe infiltrate. Troponin negative. UDS positive for amphetamines. EKG with rate of 105 there was no STEMI there were some ST changes anteriorly, and a repeat EKG showed HR 153, was given diltiazem bolus and infusion for concern for atrial flutter. Still on diltiazem GTT at 5mg/hr. He feels fluttering in his chest now, HR 105. Good urine output, swelling improved Vitals Vitals Vital Signs Date Time Temp Pulse Resp B/P (MAP) Pulse Ox O2 Delivery O2 Flow Rate FiO2 12/18/19 07:43 95 Nasal Cannula 2.0 12/18/19 07:00 97.6 94 24 132/98 (109) 97.6 Physical Exam General: Alert, Oriented X3, Cooperative, mild distress Heart: Other (tachy, some irregularities) Lungs: Wheezing Abdomen: Other (distended ) Extremities: Other (2-3+ bilateral upper and lower extremity edema. anasarca ) Skin: No significant lesion Labs LABS Laboratory Tests Test 12/17/19 10:55 12/17/19 15:15 12/17/19 17:55 White Blood Count 8.0 x10^3/uL (4.0-11.0) Red Blood Count 5.22 x10^6/uL (4.30-5.70) Hemoglobin 16.6 g/dL (13.0-17.5) Hematocrit 48.9 % (39.0-53.0) Mean Corpuscular Volume 94 fL (79-100) Mean Corpuscular Hemoglobin 32 pg (25-35) Mean Corpuscular Hemoglobin Concent 34 g/dL (31-37) Red Cell Distribution Width 14.3 % (11.5-14.5) Platelet Count 176 x10^3/uL (140-400) Neutrophils (%) (Auto) 67 % (31-73) Lymphocytes (%) (Auto) 19 % (24-48) Monocytes (%) (Auto) 11 % (0-9) Eosinophils (%) (Auto) 3 % (0-3) Basophils (%) (Auto) 2 % (0-3) Neutrophils # (Auto) 5.3 x10^3/uL (1.8-7.7) Lymphocytes # (Auto) 1.5 x10^3/uL (1.0-4.8) Monocytes # (Auto) 0.9 x10^3/uL (0.0-1.1) Eosinophils # (Auto) 0.2 x10^3/uL (0.0-0.7) Basophils # (Auto) 0.1 x10^3/uL (0.0-0.2) Prothrombin Time 14.1 SEC (11.7-14.0) Prothromb Time International Ratio 1.1 (0.8-1.1) Sodium Level 143 mmol/L (136-145) Potassium Level 4.2 mmol/L (3.5-5.1) Chloride Level 106 mmol/L (98-107) Carbon Dioxide Level 30 mmol/L (21-32) Anion Gap 7 (6-14) Blood Urea Nitrogen 18 mg/dL (8-26) Creatinine 1.2 mg/dL (0.7-1.3) Estimated GFR (Cockcroft-Gault) 62.4 BUN/Creatinine Ratio 15 (6-20) Glucose Level 112 mg/dL (70-99) Calcium Level 9.0 mg/dL (8.5-10.1) Total Bilirubin 0.5 mg/dL (0.2-1.0) Aspartate Amino Transf (AST/SGOT) 32 U/L (15-37) Alanine Aminotransferase (ALT/SGPT) 42 U/L (16-63) Alkaline Phosphatase 79 U/L (46-116) Troponin I Quantitative < 0.017 ng/mL (0.000-0.055) 0.045 ng/mL (0.000-0.055) < 0.017 ng/mL (0.000-0.055) NV-Uwi-S-Type Natriuretic Peptide 2786 pg/mL (0-124) Total Protein 6.8 g/dL (6.4-8.2) Albumin 2.8 g/dL (3.4-5.0) Albumin/Globulin Ratio 0.7 (1.0-1.7) Triglycerides Level 86 mg/dL (0-150) Cholesterol Level 103 mg/dL (0-200) LDL Cholesterol, Calculated 52 mg/dL (0-100) VLDL Cholesterol, Calculated 17 mg/dL (0-40) Non-HDL Cholesterol Calculated 69 mg/dL (0-129) HDL Cholesterol 34 mg/dL (40-60) Cholesterol/HDL Ratio 3.0 Procalcitonin < 0.10 ng/mL (0.00-0.10) Thyroid Stimulating Hormone (TSH) 2.134 uIU/mL (0.358-3.74) Urine Opiates Screen Neg (NEG) Urine Methadone Screen Neg (NEG) Urine Barbiturates Neg (NEG) Urine Phencyclidine Screen Neg (NEG) Urine Amphetamine/Methamphetamine Pos (NEG) Urine Benzodiazepines Screen Neg (NEG) Urine Cocaine Screen Neg (NEG) Urine Cannabinoids Screen Neg (NEG) Ethyl Alcohol Level < 10 mg/dL (0-10) Urine Ethyl Alcohol Neg (NEG) Assessment and Plan Assessmemt and Plan Problems Medical Problems: (1) Fluid overload Status: Acute Comment Review of Relevant I have reviewed the following items latasha (where applicable) has been applied. Labs Laboratory Tests Test 12/17/19 10:55 12/17/19 15:15 12/17/19 17:55 White Blood Count 8.0 x10^3/uL (4.0-11.0) Red Blood Count 5.22 x10^6/uL (4.30-5.70) Hemoglobin 16.6 g/dL (13.0-17.5) Hematocrit 48.9 % (39.0-53.0) Mean Corpuscular Volume 94 fL (79-100) Mean Corpuscular Hemoglobin 32 pg (25-35) Mean Corpuscular Hemoglobin Concent 34 g/dL (31-37) Red Cell Distribution Width 14.3 % (11.5-14.5) Platelet Count 176 x10^3/uL (140-400) Neutrophils (%) (Auto) 67 % (31-73) Lymphocytes (%) (Auto) 19 % (24-48) Monocytes (%) (Auto) 11 % (0-9) Eosinophils (%) (Auto) 3 % (0-3) Basophils (%) (Auto) 2 % (0-3) Neutrophils # (Auto) 5.3 x10^3/uL (1.8-7.7) Lymphocytes # (Auto) 1.5 x10^3/uL (1.0-4.8) Monocytes # (Auto) 0.9 x10^3/uL (0.0-1.1) Eosinophils # (Auto) 0.2 x10^3/uL (0.0-0.7) Basophils # (Auto) 0.1 x10^3/uL (0.0-0.2) Prothrombin Time 14.1 SEC (11.7-14.0) Prothromb Time International Ratio 1.1 (0.8-1.1) Sodium Level 143 mmol/L (136-145) Potassium Level 4.2 mmol/L (3.5-5.1) Chloride Level 106 mmol/L (98-107) Carbon Dioxide Level 30 mmol/L (21-32) Anion Gap 7 (6-14) Blood Urea Nitrogen 18 mg/dL (8-26) Creatinine 1.2 mg/dL (0.7-1.3) Estimated GFR (Cockcroft-Gault) 62.4 BUN/Creatinine Ratio 15 (6-20) Glucose Level 112 mg/dL (70-99) Calcium Level 9.0 mg/dL (8.5-10.1) Total Bilirubin 0.5 mg/dL (0.2-1.0) Aspartate Amino Transf (AST/SGOT) 32 U/L (15-37) Alanine Aminotransferase (ALT/SGPT) 42 U/L (16-63) Alkaline Phosphatase 79 U/L (46-116) Troponin I Quantitative < 0.017 ng/mL (0.000-0.055) 0.045 ng/mL (0.000-0.055) < 0.017 ng/mL (0.000-0.055) MO-Xxw-M-Type Natriuretic Peptide 2786 pg/mL (0-124) Total Protein 6.8 g/dL (6.4-8.2) Albumin 2.8 g/dL (3.4-5.0) Albumin/Globulin Ratio 0.7 (1.0-1.7) Triglycerides Level 86 mg/dL (0-150) Cholesterol Level 103 mg/dL (0-200) LDL Cholesterol, Calculated 52 mg/dL (0-100) VLDL Cholesterol, Calculated 17 mg/dL (0-40) Non-HDL Cholesterol Calculated 69 mg/dL (0-129) HDL Cholesterol 34 mg/dL (40-60) Cholesterol/HDL Ratio 3.0 Procalcitonin < 0.10 ng/mL (0.00-0.10) Thyroid Stimulating Hormone (TSH) 2.134 uIU/mL (0.358-3.74) Urine Opiates Screen Neg (NEG) Urine Methadone Screen Neg (NEG) Urine Barbiturates Neg (NEG) Urine Phencyclidine Screen Neg (NEG) Urine Amphetamine/Methamphetamine Pos (NEG) Urine Benzodiazepines Screen Neg (NEG) Urine Cocaine Screen Neg (NEG) Urine Cannabinoids Screen Neg (NEG) Ethyl Alcohol Level < 10 mg/dL (0-10) Urine Ethyl Alcohol Neg (NEG) Laboratory Tests Test 12/17/19 10:55 12/17/19 15:15 12/17/19 17:55 White Blood Count 8.0 x10^3/uL (4.0-11.0) Red Blood Count 5.22 x10^6/uL (4.30-5.70) Hemoglobin 16.6 g/dL (13.0-17.5) Hematocrit 48.9 % (39.0-53.0) Mean Corpuscular Volume 94 fL (79-100) Mean Corpuscular Hemoglobin 32 pg (25-35) Mean Corpuscular Hemoglobin Concent 34 g/dL (31-37) Red Cell Distribution Width 14.3 % (11.5-14.5) Platelet Count 176 x10^3/uL (140-400) Neutrophils (%) (Auto) 67 % (31-73) Lymphocytes (%) (Auto) 19 % (24-48) Monocytes (%) (Auto) 11 % (0-9) Eosinophils (%) (Auto) 3 % (0-3) Basophils (%) (Auto) 2 % (0-3) Neutrophils # (Auto) 5.3 x10^3/uL (1.8-7.7) Lymphocytes # (Auto) 1.5 x10^3/uL (1.0-4.8) Monocytes # (Auto) 0.9 x10^3/uL (0.0-1.1) Eosinophils # (Auto) 0.2 x10^3/uL (0.0-0.7) Basophils # (Auto) 0.1 x10^3/uL (0.0-0.2) Prothrombin Time 14.1 SEC (11.7-14.0) Prothromb Time International Ratio 1.1 (0.8-1.1) Sodium Level 143 mmol/L (136-145) Potassium Level 4.2 mmol/L (3.5-5.1) Chloride Level 106 mmol/L (98-107) Carbon Dioxide Level 30 mmol/L (21-32) Anion Gap 7 (6-14) Blood Urea Nitrogen 18 mg/dL (8-26) Creatinine 1.2 mg/dL (0.7-1.3) Estimated GFR (Cockcroft-Gault) 62.4 BUN/Creatinine Ratio 15 (6-20) Glucose Level 112 mg/dL (70-99) Calcium Level 9.0 mg/dL (8.5-10.1) Total Bilirubin 0.5 mg/dL (0.2-1.0) Aspartate Amino Transf (AST/SGOT) 32 U/L (15-37) Alanine Aminotransferase (ALT/SGPT) 42 U/L (16-63) Alkaline Phosphatase 79 U/L (46-116) Troponin I Quantitative < 0.017 ng/mL (0.000-0.055) 0.045 ng/mL (0.000-0.055) < 0.017 ng/mL (0.000-0.055) WC-Lzv-X-Type Natriuretic Peptide 2786 pg/mL (0-124) Total Protein 6.8 g/dL (6.4-8.2) Albumin 2.8 g/dL (3.4-5.0) Albumin/Globulin Ratio 0.7 (1.0-1.7) Triglycerides Level 86 mg/dL (0-150) Cholesterol Level 103 mg/dL (0-200) LDL Cholesterol, Calculated 52 mg/dL (0-100) VLDL Cholesterol, Calculated 17 mg/dL (0-40) Non-HDL Cholesterol Calculated 69 mg/dL (0-129) HDL Cholesterol 34 mg/dL (40-60) Cholesterol/HDL Ratio 3.0 Procalcitonin < 0.10 ng/mL (0.00-0.10) Thyroid Stimulating Hormone (TSH) 2.134 uIU/mL (0.358-3.74) Urine Opiates Screen Neg (NEG) Urine Methadone Screen Neg (NEG) Urine Barbiturates Neg (NEG) Urine Phencyclidine Screen Neg (NEG) Urine Amphetamine/Methamphetamine Pos (NEG) Urine Benzodiazepines Screen Neg (NEG) Urine Cocaine Screen Neg (NEG) Urine Cannabinoids Screen Neg (NEG) Ethyl Alcohol Level < 10 mg/dL (0-10) Urine Ethyl Alcohol Neg (NEG) Medications Current Medications Diltiazem HCl (Cardizem Iv Push) 10 mg 1X ONCE IVP Last administered on 12/17/19at 12:01; Start 12/17/19 at 12:00; Stop 12/17/19 at 12:01; Status DC Lorazepam (Ativan Inj) 0.5 mg 1X ONCE IVP Last administered on 12/17/19at 12:00; Start 12/17/19 at 12:00; Stop 12/17/19 at 12:01; Status DC Diltiazem HCl 125 mg/Sodium Chloride 125 ml @ 5 mls/hr CONT PRN IV SEE I/O RECORD Last administered on 12/17/19at 14:22; Start 12/17/19 at 12:00 Furosemide (Lasix) 20 mg 1X ONCE IVP Last administered on 12/17/19at 12:10; Start 12/17/19 at 12:15; Stop 12/17/19 at 12:16; Status DC Ondansetron HCl (Zofran) 4 mg PRN Q4HRS PRN IV NAUSEA/VOMITING; Start 12/17/19 at 13:00 Acetaminophen (Tylenol Supp) 650 mg PRN Q4HRS PRN AL TEMP OVER 100.4F OR MILD PAIN; Start 12/17/19 at 13:00 Docusate Sodium (Colace) 100 mg PRN BID PRN PO CONSTIPATION; Start 12/17/19 at 13:00 Albuterol Sulfate (Ventolin Neb Soln) 2.5 mg PRN Q4HRS PRN NEB SHORTNESS OF BREATH; Start 12/17/19 at 13:00 Albuterol/ Ipratropium (Duoneb) 3 ml PRN Q4HRS PRN NEB shortness of breath Last administered on 12/17/19at 13:39; Start 12/17/19 at 13:00; Stop 12/17/19 at 17:00; Status DC Aspirin (Andrade Aspirin) 325 mg 1X ONCE PO Last administered on 12/17/19at 14:01; Start 12/17/19 at 13:00; Stop 12/17/19 at 13:01; Status DC Aspirin (Ecotrin) 81 mg DAILYWBKFT PO ; Start 12/18/19 at 08:00 Furosemide (Lasix) 40 mg BID92 IVP Last administered on 12/17/19at 16:14; Start 12/17/19 at 16:00 Potassium Chloride (Klor-Con) 20 meq DAILYWBKFT PO Last administered on 12/17/19at 16:14; Start 12/17/19 at 16:00 Atorvastatin Calcium (Lipitor) 20 mg QHS PO Last administered on 12/17/19at 20:03; Start 12/17/19 at 21:00 Albuterol/ Ipratropium (Duoneb) 3 ml RTQID NEB Last administered on 12/18/19at 07:42; Start 12/17/19 at 17:15 Levofloxacin (Levaquin) 500 mg DAILY06 PO Last administered on 12/18/19at 05:21; Start 12/18/19 at 06:00 Levofloxacin (Levaquin) 500 mg 1X ONCE PO Last administered on 12/17/19at 20:03; Start 12/17/19 at 20:00; Stop 12/17/19 at 20:01; Status DC Vitals/I & O Vital Sign - Last 24 Hours 12/17/19 12/17/19 12/17/19 12/17/19 11:02 11:12 11:42 12:01 Temp 97.6 97.6 Pulse 114 104 150 134 Resp 24 B/P (MAP) 159/115 (130) 165/99 (121) 153/90 (111) 153/90 Pulse Ox 95 96 96 O2 Delivery Room Air Room Air Room Air 12/17/19 12/17/19 12/17/19 12/17/19 12:12 12:42 12:50 13:28 Temp 97.5 97.5 Pulse 92 94 95 Resp 24 B/P (MAP) 158/94 (115) 146/81 (102) 160/110 (127) Pulse Ox 93 96 92 97 O2 Delivery Room Air Room Air Room Air Room Air 12/17/19 12/17/19 12/17/19 12/17/19 15:07 17:29 18:31 19:31 Temp 98.0 97.4 98.0 97.4 Pulse 95 92 88 Resp 22 16 B/P (MAP) 146/95 (112) 123/66 (85) 138/80 (99) Pulse Ox 97 92 O2 Delivery Nasal Cannula Nasal Cannula Nasal Cannula O2 Flow Rate 2.0 2.0 2.0 12/17/19 12/17/19 12/17/19 12/17/19 20:00 20:11 20:14 20:31 Pulse 94 81 B/P (MAP) 148/98 (115) 154/94 (114) Pulse Ox 94 O2 Delivery Nasal Cannula Nasal Cannula O2 Flow Rate 2.0 2.0 12/17/19 12/17/19 12/17/19 12/18/19 21:31 22:13 23:31 00:31 Temp 97.3 97.3 Pulse 95 86 85 84 Resp 18 B/P (MAP) 153/91 (111) 157/87 (110) 166/96 (119) 147/92 (110) Pulse Ox 96 O2 Delivery Nasal Cannula O2 Flow Rate 2.0 12/18/19 12/18/19 12/18/19 12/18/19 01:31 02:31 03:31 04:31 Temp 97.5 97.5 Pulse 91 94 87 86 Resp 16 B/P (MAP) 151/96 (114) 156/82 (106) 161/92 (115) 174/98 (123) Pulse Ox 92 O2 Delivery Nasal Cannula O2 Flow Rate 2.0 12/18/19 12/18/19 12/18/19 05:31 07:00 07:43 Temp 97.6 97.6 Pulse 98 94 Resp 24 B/P (MAP) 119/79 (92) 132/98 (109) Pulse Ox 96 95 O2 Delivery Nasal Cannula Nasal Cannula O2 Flow Rate 2.0 2.0 Intake and Output 12/17/19 12/17/19 12/18/19 15:00 23:00 07:00 Intake Total 30 ml 300 ml Output Total 300 ml 3025 ml 325 ml Balance -300 ml -2995 ml -25 ml WILLARD BARRERA MD Dec 18, 2019 08:46
[2019-12-18] MEDS ORDERED: LORazepam 1 MG TABLET PO PRN (09:00)
[2019-12-18] MEDS ORDERED: cloNIDine HCL 0.1 MG TABLET PO PRN (09:00)
--- NOTE | 2019-12-18 09:06 | PDOC ---
PULMONARY PROGRESS NOTES Subjective PT FEELS BETTER LESS SOA Vitals Vital Signs Date Time Temp Pulse Resp B/P (MAP) Pulse Ox O2 Delivery O2 Flow Rate FiO2 12/18/19 07:43 95 Nasal Cannula 2.0 12/18/19 07:00 97.6 94 24 132/98 (109) 97.6 ROS: No Nausea, No Chest Pain, No Abdominal Pain, No Increase Cough General: Alert Lungs: Crackles Cardiovascular: S1, S2 Abdomen: Soft Neuro Exam: Alert Extremities: Other (EDEMA) Skin: Warm Labs Laboratory Tests Test 12/17/19 10:55 12/17/19 15:15 12/17/19 17:55 White Blood Count 8.0 x10^3/uL (4.0-11.0) Red Blood Count 5.22 x10^6/uL (4.30-5.70) Hemoglobin 16.6 g/dL (13.0-17.5) Hematocrit 48.9 % (39.0-53.0) Mean Corpuscular Volume 94 fL (79-100) Mean Corpuscular Hemoglobin 32 pg (25-35) Mean Corpuscular Hemoglobin Concent 34 g/dL (31-37) Red Cell Distribution Width 14.3 % (11.5-14.5) Platelet Count 176 x10^3/uL (140-400) Neutrophils (%) (Auto) 67 % (31-73) Lymphocytes (%) (Auto) 19 % (24-48) Monocytes (%) (Auto) 11 % (0-9) Eosinophils (%) (Auto) 3 % (0-3) Basophils (%) (Auto) 2 % (0-3) Neutrophils # (Auto) 5.3 x10^3/uL (1.8-7.7) Lymphocytes # (Auto) 1.5 x10^3/uL (1.0-4.8) Monocytes # (Auto) 0.9 x10^3/uL (0.0-1.1) Eosinophils # (Auto) 0.2 x10^3/uL (0.0-0.7) Basophils # (Auto) 0.1 x10^3/uL (0.0-0.2) Prothrombin Time 14.1 SEC (11.7-14.0) Prothromb Time International Ratio 1.1 (0.8-1.1) Sodium Level 143 mmol/L (136-145) Potassium Level 4.2 mmol/L (3.5-5.1) Chloride Level 106 mmol/L (98-107) Carbon Dioxide Level 30 mmol/L (21-32) Anion Gap 7 (6-14) Blood Urea Nitrogen 18 mg/dL (8-26) Creatinine 1.2 mg/dL (0.7-1.3) Estimated GFR (Cockcroft-Gault) 62.4 BUN/Creatinine Ratio 15 (6-20) Glucose Level 112 mg/dL (70-99) Calcium Level 9.0 mg/dL (8.5-10.1) Total Bilirubin 0.5 mg/dL (0.2-1.0) Aspartate Amino Transf (AST/SGOT) 32 U/L (15-37) Alanine Aminotransferase (ALT/SGPT) 42 U/L (16-63) Alkaline Phosphatase 79 U/L (46-116) Troponin I Quantitative < 0.017 ng/mL (0.000-0.055) 0.045 ng/mL (0.000-0.055) < 0.017 ng/mL (0.000-0.055) JD-Hba-Z-Type Natriuretic Peptide 2786 pg/mL (0-124) Total Protein 6.8 g/dL (6.4-8.2) Albumin 2.8 g/dL (3.4-5.0) Albumin/Globulin Ratio 0.7 (1.0-1.7) Triglycerides Level 86 mg/dL (0-150) Cholesterol Level 103 mg/dL (0-200) LDL Cholesterol, Calculated 52 mg/dL (0-100) VLDL Cholesterol, Calculated 17 mg/dL (0-40) Non-HDL Cholesterol Calculated 69 mg/dL (0-129) HDL Cholesterol 34 mg/dL (40-60) Cholesterol/HDL Ratio 3.0 Procalcitonin < 0.10 ng/mL (0.00-0.10) Thyroid Stimulating Hormone (TSH) 2.134 uIU/mL (0.358-3.74) Urine Opiates Screen Neg (NEG) Urine Methadone Screen Neg (NEG) Urine Barbiturates Neg (NEG) Urine Phencyclidine Screen Neg (NEG) Urine Amphetamine/Methamphetamine Pos (NEG) Urine Benzodiazepines Screen Neg (NEG) Urine Cocaine Screen Neg (NEG) Urine Cannabinoids Screen Neg (NEG) Ethyl Alcohol Level < 10 mg/dL (0-10) Urine Ethyl Alcohol Neg (NEG) Laboratory Tests Test 12/17/19 10:55 12/17/19 15:15 12/17/19 17:55 White Blood Count 8.0 x10^3/uL (4.0-11.0) Red Blood Count 5.22 x10^6/uL (4.30-5.70) Hemoglobin 16.6 g/dL (13.0-17.5) Hematocrit 48.9 % (39.0-53.0) Mean Corpuscular Volume 94 fL (79-100) Mean Corpuscular Hemoglobin 32 pg (25-35) Mean Corpuscular Hemoglobin Concent 34 g/dL (31-37) Red Cell Distribution Width 14.3 % (11.5-14.5) Platelet Count 176 x10^3/uL (140-400) Neutrophils (%) (Auto) 67 % (31-73) Lymphocytes (%) (Auto) 19 % (24-48) Monocytes (%) (Auto) 11 % (0-9) Eosinophils (%) (Auto) 3 % (0-3) Basophils (%) (Auto) 2 % (0-3) Neutrophils # (Auto) 5.3 x10^3/uL (1.8-7.7) Lymphocytes # (Auto) 1.5 x10^3/uL (1.0-4.8) Monocytes # (Auto) 0.9 x10^3/uL (0.0-1.1) Eosinophils # (Auto) 0.2 x10^3/uL (0.0-0.7) Basophils # (Auto) 0.1 x10^3/uL (0.0-0.2) Prothrombin Time 14.1 SEC (11.7-14.0) Prothromb Time International Ratio 1.1 (0.8-1.1) Sodium Level 143 mmol/L (136-145) Potassium Level 4.2 mmol/L (3.5-5.1) Chloride Level 106 mmol/L (98-107) Carbon Dioxide Level 30 mmol/L (21-32) Anion Gap 7 (6-14) Blood Urea Nitrogen 18 mg/dL (8-26) Creatinine 1.2 mg/dL (0.7-1.3) Estimated GFR (Cockcroft-Gault) 62.4 BUN/Creatinine Ratio 15 (6-20) Glucose Level 112 mg/dL (70-99) Calcium Level 9.0 mg/dL (8.5-10.1) Total Bilirubin 0.5 mg/dL (0.2-1.0) Aspartate Amino Transf (AST/SGOT) 32 U/L (15-37) Alanine Aminotransferase (ALT/SGPT) 42 U/L (16-63) Alkaline Phosphatase 79 U/L (46-116) Troponin I Quantitative < 0.017 ng/mL (0.000-0.055) 0.045 ng/mL (0.000-0.055) < 0.017 ng/mL (0.000-0.055) GN-Yym-T-Type Natriuretic Peptide 2786 pg/mL (0-124) Total Protein 6.8 g/dL (6.4-8.2) Albumin 2.8 g/dL (3.4-5.0) Albumin/Globulin Ratio 0.7 (1.0-1.7) Triglycerides Level 86 mg/dL (0-150) Cholesterol Level 103 mg/dL (0-200) LDL Cholesterol, Calculated 52 mg/dL (0-100) VLDL Cholesterol, Calculated 17 mg/dL (0-40) Non-HDL Cholesterol Calculated 69 mg/dL (0-129) HDL Cholesterol 34 mg/dL (40-60) Cholesterol/HDL Ratio 3.0 Procalcitonin < 0.10 ng/mL (0.00-0.10) Thyroid Stimulating Hormone (TSH) 2.134 uIU/mL (0.358-3.74) Urine Opiates Screen Neg (NEG) Urine Methadone Screen Neg (NEG) Urine Barbiturates Neg (NEG) Urine Phencyclidine Screen Neg (NEG) Urine Amphetamine/Methamphetamine Pos (NEG) Urine Benzodiazepines Screen Neg (NEG) Urine Cocaine Screen Neg (NEG) Urine Cannabinoids Screen Neg (NEG) Ethyl Alcohol Level < 10 mg/dL (0-10) Urine Ethyl Alcohol Neg (NEG) Impression . IMPRESSION: 1. Acute hypoxemic respiratory failure. 2. Acute on chronic systolic heart failure. 3. Chest pain. 4. Possible pneumonia. 5. Arrhythmia. 6. Acute exacerbation of chronic obstructive pulmonary disease. 7. Tobacco abuse. 8. Positive drug screen for methamphetamine. Plan . WILL CONTINUE THE SAME DIURESE 1. I agree with continued diuresis. 2. Follow Cardiology input. 3. Echocardiogram. 4. Empiric antibiotics. 5. Controlled rate. TORREY RIGGS MD Dec 18, 2019 09:06
[2019-12-18] MEDS: FOLIC ACID 1 MG TABLET. PO SCH (09:44)
[2019-12-18] MEDS: MULTIVITAMIN with MINERAL TABLET. PO SCH (09:44)
[2019-12-18] MEDS: THIAMINE 100 MG TABLET. PO SCH (09:44)
[2019-12-18] MEDS: GABAPENTIN 300 MG CAPSULE. PO SCH ×3 (09:44→21:21)
[2019-12-18 09:57] LABS: CALCIUM 9.4 mg/dL (8.5-10.1); CREATININE 1.3 mg/dL (0.7-1.3); GFR 56.9; MAGNESIUM 1.7 mg/dL (1.8-2.4); POTASSIUM 4.5 mmol/L (3.5-5.1)
[2019-12-18] MEDS: dilTIAZem INJ 125 MG in IV NORMAL SALINE 100ML 100 ML IV PRN (12:13)
--- NOTE | 2019-12-18 14:35 | CARD ---
MR#: [id number] Date of Study: 12/18/2019 Ordering Physician: RAÚL CISNEROS, Referring Physician: RAÚL CISNEROS, Tech: Rebecca Guadalupe RDCS APPROVED REPORT EXAM: Two-dimensional and M-mode echocardiogram with Doppler and color Doppler. Other Information Quality : Fair Technically limited study due to body habitus. INDICATION COPD Congestive Heart Failure 2D DIMENSIONS RVDd4.6 (2.9-3.5cm)Left Atrium(2D)3.8 (1.6-4.0cm) IVSd1.2 (0.7-1.1cm)Aortic Root(2D)2.8 (2.0-3.7cm) LVDd3.7 (3.9-5.9cm)LVOT Diameter2.2 (1.8-2.4cm) PWd1.2 (0.7-1.1cm)LVDs2.9 (2.5-4.0cm) FS (%) 22.6 %SV27.5 ml LVEF(%)46.2 (>50%) Aortic Valve AoV Peak Alli.85.8cm/sAoV VTI10.4cm AO Peak GR.2.9mmHgLVOT VTI 10.53cm AO Mean GR.2mmHgAVA (VTI)3.90cm2 TDI Lateral E' P. V7.98cm/s Tricuspid Valve TR P. [id number] [id number] TR Peak Gr.[id number] LEFT VENTRICLE The left ventricle cavity is small. There is mild concentric left ventricular hypertrophy. Left ventr icle systolic function is low normal. The Ejection Fraction is 50%. Septal motion consistent with con duction abnormality. There is RV pressure and volume overload noted as well. Transmitral Doppler flow pattern is Grade I-abnormal relaxation pattern. RIGHT VENTRICLE The right ventricle is severely dilated. RV Systolic function is moderately reduced. ATRIA The left atrium size is normal. The right atrium is severely dilated. The interatrial septum is intac t with no evidence for an atrial septal defect or patent foramen ovale as noted on 2-D or Doppler sonal ging. AORTIC VALVE The aortic valve is not well visualized but appears to be functioning normally by Doppler interrogati on. Doppler and Color Flow revealed no significant aortic regurgitation. There is no significant aort ic valvular stenosis. MITRAL VALVE The mitral valve is normal in structure and function. There is no evidence of mitral valve prolapse. There is no mitral valve stenosis. Doppler and Color Flow revealed no mitral valve regurgitation note d. TRICUSPID VALVE The tricuspid valve is normal in structure and function. Doppler and Color Flow revealed trace to mil d tricuspid regurgitation. There is moderate pulmonary hypertension. The PA pressure was estimated at 57 mmHg. There is no tricuspid valve stenosis. PULMONIC VALVE The pulmonic valve is not well visualized. Doppler and Color Flow revealed no pulmonic valvular regur gitation. There is no pulmonic valvular stenosis. GREAT VESSELS The aortic root is normal in size. The ascending aorta is not well seen. The IVC is normal in size an d collapses >50% with inspiration. PERICARDIAL EFFUSION There is no evidence of significant pericardial effusion. Critical Notification Critical Value: No <Conclusion> Left ventricle systolic function is low normal. The Ejection Fraction is 50%. Septal motion consistent with conduction abnormality. There is RV pressure and volume overload noted as well. The right ventricle is severely dilated. RV Systolic function is moderately reduced. Doppler and Color Flow revealed trace to mild tricuspid regurgitation. There is moderate pulmonary hy pertension. The PA pressure was estimated at 57 mmHg. Signed by : Sang Mays, Electronically Approved : 12/18/2019 14:35:06
--- NOTE | 2019-12-18 15:28 | NUR ---
SS following for discharge planning. SS reviewed pt chart. Pt is self pay pt. [facility] following for self pay status. Pt is from home. SS will continue to follow for discharge planning.
--- NOTE | 2019-12-18 16:38 | PDOC ---
PROGRESS NOTES Subjective Subjective Patient seen and examined Objective Objective Vital Signs Date Time Temp Pulse Resp B/P (MAP) Pulse Ox O2 Delivery O2 Flow Rate FiO2 12/18/19 15:22 97.3 99 22 152/85 (107) 96 Nasal Cannula 2.0 97.3 Intake and Output 12/18/19 07:00 Intake Total 330 ml Output Total 3650 ml Balance -3320 ml Intake Oral 330 ml Output Urine Total 3650 ml # Voids 1 Physical Exam Abdomen: Normal bowel sounds Heart: Regular rate General: mild distress Lungs: Other (decreased breath sounds) Assessment Assessment Problems Medical Problems: (1) Fluid overload Status: Acute Acute respiratory factor failure with heart failure, COPD and possibly pneumonia. Improved today. Continuing diuresis with monitoring of lab. Echo shows an ejection fraction of 50% but has RV dilation and moderate pulmonary hypertension with a PA P of 57 mmHg. Continue present treatment. Acute on chronic probable heart failure. Diuresis and echo as noted above. Heart failure mainly right sided. We'll attempt to find old records from [facility]. Chest pain. Atypical. Resolved. Initial arrhythmia. Rates to 150 with possible atrial tachycardia. Now sinus rhythm with rates in at 90. Continue to monitor. Hypertension. Noncompliant with medications. Improved with treatment. Liver disease with hepatitis C. History of substance abuse. History of noncompliance. Comment Review of Relevant I have reviewed the following items latasha (where applicable) has been applied. Labs Laboratory Tests Test 12/17/19 10:55 12/17/19 15:15 12/17/19 17:55 12/18/19 09:30 White Blood Count 8.0 x10^3/uL (4.0-11.0) Red Blood Count 5.22 x10^6/uL (4.30-5.70) Hemoglobin 16.6 g/dL (13.0-17.5) Hematocrit 48.9 % (39.0-53.0) Mean Corpuscular Volume 94 fL (79-100) Mean Corpuscular Hemoglobin 32 pg (25-35) Mean Corpuscular Hemoglobin Concent 34 g/dL (31-37) Red Cell Distribution Width 14.3 % (11.5-14.5) Platelet Count 176 x10^3/uL (140-400) Neutrophils (%) (Auto) 67 % (31-73) Lymphocytes (%) (Auto) 19 % (24-48) Monocytes (%) (Auto) 11 % (0-9) Eosinophils (%) (Auto) 3 % (0-3) Basophils (%) (Auto) 2 % (0-3) Neutrophils # (Auto) 5.3 x10^3/uL (1.8-7.7) Lymphocytes # (Auto) 1.5 x10^3/uL (1.0-4.8) Monocytes # (Auto) 0.9 x10^3/uL (0.0-1.1) Eosinophils # (Auto) 0.2 x10^3/uL (0.0-0.7) Basophils # (Auto) 0.1 x10^3/uL (0.0-0.2) Prothrombin Time 14.1 SEC (11.7-14.0) Prothromb Time International Ratio 1.1 (0.8-1.1) Sodium Level 143 mmol/L (136-145) 142 mmol/L (136-145) Potassium Level 4.2 mmol/L (3.5-5.1) 4.5 mmol/L (3.5-5.1) Chloride Level 106 mmol/L (98-107) 103 mmol/L (98-107) Carbon Dioxide Level 30 mmol/L (21-32) 32 mmol/L (21-32) Anion Gap 7 (6-14) 7 (6-14) Blood Urea Nitrogen 18 mg/dL (8-26) 17 mg/dL (8-26) Creatinine 1.2 mg/dL (0.7-1.3) 1.3 mg/dL (0.7-1.3) Estimated GFR (Cockcroft-Gault) 62.4 56.9 BUN/Creatinine Ratio 15 (6-20) Glucose Level 112 mg/dL (70-99) 144 mg/dL (70-99) Calcium Level 9.0 mg/dL (8.5-10.1) 9.4 mg/dL (8.5-10.1) Total Bilirubin 0.5 mg/dL (0.2-1.0) Aspartate Amino Transf (AST/SGOT) 32 U/L (15-37) Alanine Aminotransferase (ALT/SGPT) 42 U/L (16-63) Alkaline Phosphatase 79 U/L (46-116) Troponin I Quantitative < 0.017 ng/mL (0.000-0.055) 0.045 ng/mL (0.000-0.055) < 0.017 ng/mL (0.000-0.055) ON-Lhg-P-Type Natriuretic Peptide 2786 pg/mL (0-124) Total Protein 6.8 g/dL (6.4-8.2) Albumin 2.8 g/dL (3.4-5.0) Albumin/Globulin Ratio 0.7 (1.0-1.7) Triglycerides Level 86 mg/dL (0-150) Cholesterol Level 103 mg/dL (0-200) LDL Cholesterol, Calculated 52 mg/dL (0-100) VLDL Cholesterol, Calculated 17 mg/dL (0-40) Non-HDL Cholesterol Calculated 69 mg/dL (0-129) HDL Cholesterol 34 mg/dL (40-60) Cholesterol/HDL Ratio 3.0 Procalcitonin < 0.10 ng/mL (0.00-0.10) Thyroid Stimulating Hormone (TSH) 2.134 uIU/mL (0.358-3.74) Urine Opiates Screen Neg (NEG) Urine Methadone Screen Neg (NEG) Urine Barbiturates Neg (NEG) Urine Phencyclidine Screen Neg (NEG) Urine Amphetamine/Methamphetamine Pos (NEG) Urine Benzodiazepines Screen Neg (NEG) Urine Cocaine Screen Neg (NEG) Urine Cannabinoids Screen Neg (NEG) Ethyl Alcohol Level < 10 mg/dL (0-10) Urine Ethyl Alcohol Neg (NEG) Magnesium Level 1.7 mg/dL (1.8-2.4) Laboratory Tests Test 12/17/19 17:55 12/18/19 09:30 Troponin I Quantitative < 0.017 ng/mL (0.000-0.055) Sodium Level 142 mmol/L (136-145) Potassium Level 4.5 mmol/L (3.5-5.1) Chloride Level 103 mmol/L (98-107) Carbon Dioxide Level 32 mmol/L (21-32) Anion Gap 7 (6-14) Blood Urea Nitrogen 17 mg/dL (8-26) Creatinine 1.3 mg/dL (0.7-1.3) Estimated GFR (Cockcroft-Gault) 56.9 Glucose Level 144 mg/dL (70-99) Calcium Level 9.4 mg/dL (8.5-10.1) Magnesium Level 1.7 mg/dL (1.8-2.4) Medications Current Medications Diltiazem HCl (Cardizem Iv Push) 10 mg 1X ONCE IVP Last administered on 12/17/19at 12:01; Start 12/17/19 at 12:00; Stop 12/17/19 at 12:01; Status DC Lorazepam (Ativan Inj) 0.5 mg 1X ONCE IVP Last administered on 12/17/19at 12:00; Start 12/17/19 at 12:00; Stop 12/17/19 at 12:01; Status DC Diltiazem HCl 125 mg/Sodium Chloride 125 ml @ 5 mls/hr CONT PRN IV SEE I/O RECORD Last administered on 12/18/19at 12:13; Start 12/17/19 at 12:00 Furosemide (Lasix) 20 mg 1X ONCE IVP Last administered on 12/17/19at 12:10; Start 12/17/19 at 12:15; Stop 12/17/19 at 12:16; Status DC Ondansetron HCl (Zofran) 4 mg PRN Q4HRS PRN IV NAUSEA/VOMITING; Start 12/17/19 at 13:00 Acetaminophen (Tylenol Supp) 650 mg PRN Q4HRS PRN RI TEMP OVER 100.4F OR MILD PAIN; Start 12/17/19 at 13:00 Docusate Sodium (Colace) 100 mg PRN BID PRN PO CONSTIPATION; Start 12/17/19 at 13:00 Albuterol Sulfate (Ventolin Neb Soln) 2.5 mg PRN Q4HRS PRN NEB SHORTNESS OF BREATH; Start 12/17/19 at 13:00 Albuterol/ Ipratropium (Duoneb) 3 ml PRN Q4HRS PRN NEB shortness of breath Last administered on 12/17/19at 13:39; Start 12/17/19 at 13:00; Stop 12/17/19 at 17:00; Status DC Aspirin (Andrade Aspirin) 325 mg 1X ONCE PO Last administered on 12/17/19at 14:01; Start 12/17/19 at 13:00; Stop 12/17/19 at 13:01; Status DC Aspirin (Ecotrin) 81 mg DAILYWBKFT PO Last administered on 12/18/19 08:41; Start 12/18/19 at 08:00 Furosemide (Lasix) 40 mg BID92 IVP Last administered on 12/18/19 14:34; Start 12/17/19 at 16:00 Potassium Chloride (Klor-Con) 20 meq DAILYWBKFT PO Last administered on 08:41; Start 12/17/19 at 16:00 Atorvastatin Calcium (Lipitor) 20 mg QHS PO Last administered on 12/17/19at 20:03; Start 12/17/19 at 21:00 Albuterol/ Ipratropium (Duoneb) 3 ml RTQID NEB Last administered on 12/18/19 12:00; Start 12/17/19 at 17:15 Levofloxacin (Levaquin) 500 mg DAILY06 PO Last administered on 12/18/19 05:21; Start 12/18/19 at 06:00 Levofloxacin (Levaquin) 500 mg 1X ONCE PO Last administered on 12/17/19 20:03; Start 12/17/19 at 20:00; Stop 12/17/19 at 20:01; Status DC Multivitamins (Thera M Plus) 1 tab DAILY PO Last administered on 12/18/19 09:44; Start 12/18/19 at 09:00 Folic Acid (Folic Acid) 1 mg DAILY PO Last administered on 12/18/19 09:44; Start 12/18/19 at 09:00 Thiamine Mononitrate (Vitamin B-1) 100 mg DAILY PO Last administered on 12/18/19at 09:44; Start 12/18/19 at 09:00 Lorazepam (Ativan) 1 mg PRN Q1HR PRN PO For CIWA 8-14 or anxiety; Start 12/18/19 at 09:00 Lorazepam (Ativan Inj) 0.5 mg PRN Q1HR PRN IV For CIWA 8-14, anxiety; Start 12/18/19 at 09:00 Clonidine HCl (Catapres) 0.1 mg PRN Q1HR PRN PO SBP > 180 or DBP > 100, MRX3; Start 12/18/19 at 09:00 Gabapentin (Neurontin) 300 mg TID PO Last administered on 12/18/19at 14:34; Start 12/18/19 at 09:00 Vitals/I & O Vital Sign - Last 24 Hours 12/17/19 12/17/19 12/17/19 12/17/19 17:29 18:31 19:31 20:00 Temp 97.4 97.4 Pulse 92 88 Resp 16 B/P (MAP) 123/66 (85) 138/80 (99) Pulse Ox 92 O2 Delivery Nasal Cannula Nasal Cannula Nasal Cannula O2 Flow Rate 2.0 2.0 2.0 12/17/19 12/17/19 12/17/19 12/17/19 20:11 20:14 20:31 21:31 Pulse 94 81 95 B/P (MAP) 148/98 (115) 154/94 (114) 153/91 (111) Pulse Ox 94 O2 Delivery Nasal Cannula O2 Flow Rate 2.0 12/17/19 12/17/19 12/18/19 12/18/19 22:13 23:31 00:31 01:31 Temp 97.3 97.3 Pulse 86 85 84 91 Resp 18 B/P (MAP) 157/87 (110) 166/96 (119) 147/92 (110) 151/96 (114) Pulse Ox 96 O2 Delivery Nasal Cannula O2 Flow Rate 2.0 12/18/19 12/18/19 12/18/19 12/18/19 02:31 03:31 04:31 05:31 Temp 97.5 97.5 Pulse 94 87 86 98 Resp 16 B/P (MAP) 156/82 (106) 161/92 (115) 174/98 (123) 119/79 (92) Pulse Ox 92 O2 Delivery Nasal Cannula O2 Flow Rate 2.0 12/18/19 12/18/19 12/18/19 12/18/19 07:00 07:43 08:00 10:42 Temp 97.6 97.5 97.6 97.5 Pulse 94 93 Resp 24 24 B/P (MAP) 132/98 (109) 138/92 (107) Pulse Ox 96 95 97 O2 Delivery Nasal Cannula Nasal Cannula Nasal Cannula Nasal Cannula O2 Flow Rate 2.0 2.0 2.0 2.0 12/18/19 12/18/19 12:03 15:22 Temp 97.3 97.3 Pulse 99 Resp 22 B/P (MAP) 152/85 (107) Pulse Ox 95 96 O2 Delivery Nasal Cannula Nasal Cannula O2 Flow Rate 2.0 2.0 Intake and Output 12/17/19 12/17/19 12/18/19 15:00 23:00 07:00 Intake Total 30 ml 300 ml Output Total 300 ml 3025 ml 325 ml Balance -300 ml -2995 ml -25 ml TIGIST GUARDADO MD Dec 18, 2019 16:38
[2019-12-18] MEDS ORDERED: CONTRAST GIVEN. MC PRN (17:15)
[2019-12-18] MEDS ORDERED: MAGNESIUM SULFATE 2GM 50 ML IV ONE ×2 (17:15)
[2019-12-18] MEDS ORDERED: IOHEXOL 350 MG/ML 100 ML VIAL. IV ONE (17:15)
--- NOTE | 2019-12-18 18:43 | RAD ---
CTA chest with contrast dated 12/18/2019. No comparison available. Clinical data indication: Shortness of breath. Tachycardia. TECHNIQUE: Contiguous axial imaging the chest performed following the intravenous administration of 90 cc Omnipaque 350. Study performed as dedicated PE protocol with thin cut coronal MIPS 3-D reconstruction. One or more of the following individualized dose reduction techniques were utilized for this examination: 1. Automated exposure control 2. Adjustment of the mA and/or kV according to patient size 3. Use of iterative reconstruction technique. FINDINGS: Contrast bolus is adequate. No evidence of central, lobar or segmental pulmonary embolus. Subsegmental branches are not well evaluated based on technique. Heart size is mildly enlarged with enlargement of the right atrium and right ventricle. Mild ectasia of the ascending thoracic aorta measuring 3.8 cm transverse. No intimal flap or periaortic fluid collection. There are scattered coronary calcifications. No mediastinal, hilar or axillary lymphadenopathy. Thyroid gland unremarkable. Central airways are patent. Mild diffuse bronchial wall thickening. Calcified granuloma right lower lobe. Linear bands of increased density in the lower lobes, likely scar or atelectasis. No consolidation or pleural effusion. No pneumothorax. Limited images of the upper abdomen unremarkable. No acute bony abnormality. Multilevel spondylosis. IMPRESSION: 1. No evidence of central, lobar or segmental pulmonary embolus. 2. Cardiomegaly with predominantly right-sided chamber enlargement. 3. Coronary artery calcifications and mild ectasia of the ascending thoracic aorta. 4. Bibasilar scar or atelectasis. Otherwise clear lungs. Electronically signed by: Emery Sprague MD (12/18/2019 6:40 PM) [id number]
[2019-12-18] MEDS: ATORVASTATIN CALCIUM 20 MG TABLET PO SCH (21:21)
[2019-12-19 02:54] VITALS: BP 151/96
[2019-12-19 07:00] VITALS: BP 163/86
[2019-12-19] MEDS: IPRATRPIUM/ALBUTEROL 0.5/2.5MG 3 ML NEBU. NEB SCH ×3 (08:15→15:56)
[2019-12-19] MEDS: THIAMINE 100 MG TABLET. PO SCH (08:42)
[2019-12-19] MEDS: MULTIVITAMIN with MINERAL TABLET. PO SCH (08:43)
[2019-12-19] MEDS: ASPIRIN ENTERIC COATED 81 MG TABLET.DR. PO SCH (08:43)
[2019-12-19] MEDS: FOLIC ACID 1 MG TABLET. PO SCH (08:43)
[2019-12-19] MEDS: POTASSIUM CHLORIDE 20 MEQ TABLET.ER. PO SCH (08:43)
[2019-12-19] MEDS: FUROSEMIDE 40 MG/4 ML VIAL. IVP SCH (08:44)
[2019-12-19] MEDS: GABAPENTIN 300 MG CAPSULE. PO SCH ×2 (08:44→15:23)
--- NOTE | 2019-12-19 08:55 | PDOC ---
PROGRESS NOTES Chief Complaint Chief Complaint A/P: Shortness of breath - multifactorial, possible reactive airway disease/COPD with smoking history as well as findings consistent with pulmonary edema from CHF. I have lower suspicion for pneumonia, though there is infiltrate. Will isai, ordered nebs. Consult cardiology and pulmonology Chest pain - likely from acute CHF exacerbation and possible costochondritis from bronchitis. negative trend on troponins Atrial arrhythmia - possibly atrial flutter. Will cont diltiazem infusion and repeat EKG. 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 Counseled that this is not sustained remission h/o Hep C s/p SVR with [facility] in 2017 - notes he has had viral titres that were negative 3 years ago. 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 Now has associated orthopnea and PND. Has a dry, non- productive cough. He has not been taking his meds for HTN. No fever no infectious symptoms he is not having any sweats or chills either. Occasionally having sharp chest pain on the left. He notes he has been experiencing dizziness lately with his coughs as well and states he thinks he passed out a few weeks ago. He notes he drank heavily until 5 years ago, but still drinks nearly daily currently. He notes this past Sunday12/12/2019 he saw a disability physician for [place] and was instructed to head straight to the ED. Historically he gives a non-linear history, states he has been seen by pul monology and cardiology, but is not aware of any diagnosis of CHF, CAD, or COPD. States his last stress test was at [facility] 2 years ago, but notes he has been at [facility] and [facility] as well in the past 2 years for similar symptoms. In ED his BNP was 2786. CXR with bilateral edema and read as right middle lobe infiltrate. Troponin negative. UDS positive for amphetamines. EKG with rate of 105 there was no STEMI there were some ST changes anteriorly, and a repeat EKG showed HR 153, was given diltiazem bolus and infusion for concern for atrial flutter. 12/17: Still on diltiazem GTT at 5mg/hr. He feels fluttering in his chest now, HR 105. Good urine output, swelling improved. RVSP 57 and enlarged right ventricle and right sided heart failure on echo. CTPA negative for embolic disease Overnight feeling better, he states he does not sleep well in general. Discussed right sided CHF symptoms with him. He is less swollen, less short of breath. HR still elevated. Plan: Now improved from acute CHF, initiating BB may be appropriate Vitals Vitals Vital Signs Date Time Temp Pulse Resp B/P (MAP) Pulse Ox O2 Delivery O2 Flow Rate FiO2 12/19/19 08:10 92 Nasal Cannula 2.0 12/19/19 07:00 97.6 101 16 163/86 (111) 97.6 Physical Exam General: Alert, Cooperative, mild distress Heart: Regular rate Lungs: Crackles Abdomen: Normal bowel sounds Extremities: Other (2-3+ bilateral upper and lower extremity edema. anasarca ) Skin: No significant lesion Labs LABS Laboratory Tests Test 12/18/19 09:30 Sodium Level 142 mmol/L (136-145) Potassium Level 4.5 mmol/L (3.5-5.1) Chloride Level 103 mmol/L (98-107) Carbon Dioxide Level 32 mmol/L (21-32) Anion Gap 7 (6-14) Blood Urea Nitrogen 17 mg/dL (8-26) Creatinine 1.3 mg/dL (0.7-1.3) Estimated GFR (Cockcroft-Gault) 56.9 Glucose Level 144 mg/dL (70-99) Calcium Level 9.4 mg/dL (8.5-10.1) Magnesium Level 1.7 mg/dL (1.8-2.4) Assessment and Plan Assessmemt and Plan Problems Medical Problems: (1) Fluid overload Status: Acute Comment Review of Relevant I have reviewed the following items latasha (where applicable) has been applied. Labs Laboratory Tests Test 12/17/19 10:55 12/17/19 15:15 12/17/19 17:55 12/18/19 09:30 White Blood Count 8.0 x10^3/uL (4.0-11.0) Red Blood Count 5.22 x10^6/uL (4.30-5.70) Hemoglobin 16.6 g/dL (13.0-17.5) Hematocrit 48.9 % (39.0-53.0) Mean Corpuscular Volume 94 fL (79-100) Mean Corpuscular Hemoglobin 32 pg (25-35) Mean Corpuscular Hemoglobin Concent 34 g/dL (31-37) Red Cell Distribution Width 14.3 % (11.5-14.5) Platelet Count 176 x10^3/uL (140-400) Neutrophils (%) (Auto) 67 % (31-73) Lymphocytes (%) (Auto) 19 % (24-48) Monocytes (%) (Auto) 11 % (0-9) Eosinophils (%) (Auto) 3 % (0-3) Basophils (%) (Auto) 2 % (0-3) Neutrophils # (Auto) 5.3 x10^3/uL (1.8-7.7) Lymphocytes # (Auto) 1.5 x10^3/uL (1.0-4.8) Monocytes # (Auto) 0.9 x10^3/uL (0.0-1.1) Eosinophils # (Auto) 0.2 x10^3/uL (0.0-0.7) Basophils # (Auto) 0.1 x10^3/uL (0.0-0.2) Prothrombin Time 14.1 SEC (11.7-14.0) Prothromb Time International Ratio 1.1 (0.8-1.1) Sodium Level 143 mmol/L (136-145) 142 mmol/L (136-145) Potassium Level 4.2 mmol/L (3.5-5.1) 4.5 mmol/L (3.5-5.1) Chloride Level 106 mmol/L (98-107) 103 mmol/L (98-107) Carbon Dioxide Level 30 mmol/L (21-32) 32 mmol/L (21-32) Anion Gap 7 (6-14) 7 (6-14) Blood Urea Nitrogen 18 mg/dL (8-26) 17 mg/dL (8-26) Creatinine 1.2 mg/dL (0.7-1.3) 1.3 mg/dL (0.7-1.3) Estimated GFR (Cockcroft-Gault) 62.4 56.9 BUN/Creatinine Ratio 15 (6-20) Glucose Level 112 mg/dL (70-99) 144 mg/dL (70-99) Calcium Level 9.0 mg/dL (8.5-10.1) 9.4 mg/dL (8.5-10.1) Total Bilirubin 0.5 mg/dL (0.2-1.0) Aspartate Amino Transf (AST/SGOT) 32 U/L (15-37) Alanine Aminotransferase (ALT/SGPT) 42 U/L (16-63) Alkaline Phosphatase 79 U/L (46-116) Troponin I Quantitative < 0.017 ng/mL (0.000-0.055) 0.045 ng/mL (0.000-0.055) < 0.017 ng/mL (0.000-0.055) HP-Rwc-D-Type Natriuretic Peptide 2786 pg/mL (0-124) Total Protein 6.8 g/dL (6.4-8.2) Albumin 2.8 g/dL (3.4-5.0) Albumin/Globulin Ratio 0.7 (1.0-1.7) Triglycerides Level 86 mg/dL (0-150) Cholesterol Level 103 mg/dL (0-200) LDL Cholesterol, Calculated 52 mg/dL (0-100) VLDL Cholesterol, Calculated 17 mg/dL (0-40) Non-HDL Cholesterol Calculated 69 mg/dL (0-129) HDL Cholesterol 34 mg/dL (40-60) Cholesterol/HDL Ratio 3.0 Procalcitonin < 0.10 ng/mL (0.00-0.10) Thyroid Stimulating Hormone (TSH) 2.134 uIU/mL (0.358-3.74) Urine Opiates Screen Neg (NEG) Urine Methadone Screen Neg (NEG) Urine Barbiturates Neg (NEG) Urine Phencyclidine Screen Neg (NEG) Urine Amphetamine/Methamphetamine Pos (NEG) Urine Benzodiazepines Screen Neg (NEG) Urine Cocaine Screen Neg (NEG) Urine Cannabinoids Screen Neg (NEG) Ethyl Alcohol Level < 10 mg/dL (0-10) Urine Ethyl Alcohol Neg (NEG) Magnesium Level 1.7 mg/dL (1.8-2.4) Laboratory Tests Test 12/18/19 09:30 Sodium Level 142 mmol/L (136-145) Potassium Level 4.5 mmol/L (3.5-5.1) Chloride Level 103 mmol/L (98-107) Carbon Dioxide Level 32 mmol/L (21-32) Anion Gap 7 (6-14) Blood Urea Nitrogen 17 mg/dL (8-26) Creatinine 1.3 mg/dL (0.7-1.3) Estimated GFR (Cockcroft-Gault) 56.9 Glucose Level 144 mg/dL (70-99) Calcium Level 9.4 mg/dL (8.5-10.1) Magnesium Level 1.7 mg/dL (1.8-2.4) Medications Current Medications Diltiazem HCl (Cardizem Iv Push) 10 mg 1X ONCE IVP Last administered on 12/17/19at 12:01; Start 12/17/19 at 12:00; Stop 12/17/19 at 12:01; Status DC Lorazepam (Ativan Inj) 0.5 mg 1X ONCE IVP Last administered on 12/17/19at 12:00; Start 12/17/19 at 12:00; Stop 12/17/19 at 12:01; Status DC Diltiazem HCl 125 mg/Sodium Chloride 125 ml @ 5 mls/hr CONT PRN IV SEE I/O RECORD Last administered on 12/18/19at 12:13; Start 12/17/19 at 12:00 Furosemide (Lasix) 20 mg 1X ONCE IVP Last administered on 12/17/19at 12:10; Start 12/17/19 at 12:15; Stop 12/17/19 at 12:16; Status DC Ondansetron HCl (Zofran) 4 mg PRN Q4HRS PRN IV NAUSEA/VOMITING; Start 12/17/19 at 13:00 Acetaminophen (Tylenol Supp) 650 mg PRN Q4HRS PRN [place] TEMP OVER 100.4F OR MILD PAIN; Start 12/17/19 at 13:00 Docusate Sodium (Colace) 100 mg PRN BID PRN PO CONSTIPATION; Start 12/17/19 at 13:00 Albuterol Sulfate (Ventolin Neb Soln) 2.5 mg PRN Q4HRS PRN NEB SHORTNESS OF BREATH; Start 12/17/19 at 13:00 Albuterol/ Ipratropium (Duoneb) 3 ml PRN Q4HRS PRN NEB shortness of breath Last administered on 12/17/19at 13:39; Start 12/17/19 at 13:00; Stop 12/17/19 at 17:00; Status DC Aspirin (Andrade Aspirin) 325 mg 1X ONCE PO Last administered on 12/17/19at 14:01; Start 12/17/19 at 13:00; Stop 12/17/19 at 13:01; Status DC Aspirin (Ecotrin) 81 mg DAILYWBKFT PO Last administered on 12/18/19at 08:41; Start 12/18/19 at 08:00 Furosemide (Lasix) 40 mg BID92 IVP Last administered on 12/18/19at 14:34; Start 12/17/19 at 16:00 Potassium Chloride (Klor-Con) 20 meq DAILYWBKFT PO Last administered on 12/18/19at 08:41; Start 12/17/19 at 16:00 Atorvastatin Calcium (Lipitor) 20 mg QHS PO Last administered on 12/18/19at 21:21; Start 12/17/19 at 21:00 Albuterol/ Ipratropium (Duoneb) 3 ml RTQID NEB Last administered on 12/18/19at 21:05; Start 12/17/19 at 17:15 Levofloxacin (Levaquin) 500 mg DAILY06 PO Last administered on 12/19/19at 05:23; Start 12/18/19 at 06:00 Levofloxacin (Levaquin) 500 mg 1X ONCE PO Last administered on 12/17/19at 20:03; Start 12/17/19 at 20:00; Stop 12/17/19 at 20:01; Status DC Multivitamins (Thera M Plus) 1 tab DAILY PO Last administered on 12/18/19at 09:4 4; Start 12/18/19 at 09:00 Folic Acid (Folic Acid) 1 mg DAILY PO Last administered on 12/18/19at 09:44; Start 12/18/19 at 09:00 Thiamine Mononitrate (Vitamin B-1) 100 mg DAILY PO Last administered on 12/18/19at 09:44; Start 12/18/19 at 09:00 Lorazepam (Ativan) 1 mg PRN Q1HR PRN PO For CIWA 8-14 or anxiety; Start 12/18/19 at 09:00 Lorazepam (Ativan Inj) 0.5 mg PRN Q1HR PRN IV For CIWA 8-14, anxiety; Start 12/18/19 at 09:00 Clonidine HCl (Catapres) 0.1 mg PRN Q1HR PRN PO SBP > 180 or DBP > 100, MRX3; Start 12/18/19 at 09:00 Gabapentin (Neurontin) 300 mg TID PO Last administered on 12/18/19at 21:21; Start 12/18/19 at 09:00 Magnesium Sulfate 50 ml @ 25 mls/hr 1X ONCE IV Last administered on 12/18/19at 18:30; Start 12/18/19 at 17:15; Stop 12/18/19 at 19:14; Status DC Magnesium Sulfate 50 ml @ 25 mls/hr 1X ONCE IV ; Start 12/18/19 at 17:15; Stop 12/18/19 at 19:14; Status UNV Diltiazem HCl (Cardizem 24hr Cd) 120 mg DAILY PO Last administered on 12/18/19at 17:20; Start 12/18/19 at 17:15 Iohexol (Omnipaque 350 Mg/ml) 90 ml 1X ONCE IV Last administered on 12/18/19at 17:15; Start 12/18/19 at 17:15; Stop 12/18/19 at 17:16; Status DC Info (CONTRAST GIVEN -- Rx MONITORING) 1 each PRN DAILY PRN MC SEE COMMENTS; Start 12/18/19 at 17:15; Stop 12/20/19 at 17:14 Vitals/I & O Vital Sign - Last 24 Hours 12/18/19 12/18/19 12/18/19 12/18/19 10:42 12:03 15:22 16:37 Temp 97.5 97.3 97.5 97.3 Pulse 93 99 Resp 24 22 B/P (MAP) 138/92 (107) 152/85 (107) Pulse Ox 97 95 96 95 O2 Delivery Nasal Cannula Nasal Cannula Nasal Cannula Nasal Cannula O2 Flow Rate 2.0 2.0 2.0 2.0 12/18/19 12/18/19 12/18/19 12/18/19 17:20 19:37 20:00 21:06 Temp 97.3 97.3 Pulse 99 93 Resp 24 B/P (MAP) 152/85 143/96 (112) Pulse Ox 98 97 O2 Delivery Nasal Cannula Nasal Cannula Nasal Cannula O2 Flow Rate 2.0 2.0 2.0 12/18/19 12/19/19 12/19/19 12/19/19 23:06 02:54 07:00 08:10 Temp 97.8 97.6 97.6 97.8 97.6 97.6 Pulse 89 85 101 Resp 24 22 16 B/P (MAP) 148/81 (103) 151/96 (114) 163/86 (111) Pulse Ox 93 92 96 92 O2 Delivery Nasal Cannula Nasal Cannula Nasal Cannula Nasal Cannula O2 Flow Rate 2.0 2.0 2.0 2.0 Intake and Output 12/18/19 12/18/19 12/19/19 15:00 23:00 07:00 Intake Total 490 ml 240 ml Output Total 2050 ml 850 ml Balance -1560 ml -850 ml 240 ml Images CTPA - Contrast bolus is adequate. No evidence of central, lobar or segmental pulmonary embolus. Subsegmental branches are not well evaluated based on technique. Heart size is mildly enlarged with enlargement of the right atrium and right ventricle. Mild ectasia of the ascending thoracic aorta measuring 3.8 cm transverse. No intimal flap or periaortic fluid collection. There are scattered coronary calcifications. No mediastinal, hilar or axillary lymphadenopathy. Thyroid gland unremarkable. Central airways are patent. Mild diffuse bronchial wall thickening. Calcified granuloma right lower lobe. Linear bands of increased density in the lower lobes, likely scar or atelectasis. No consolidation or pleural effusion. No pneumothorax. Limited images of the upper abdomen unremarkable. No acute bony abnormality. Multilevel spondylosis. IMPRESSION: 1. No evidence of central, lobar or segmental pulmonary embolus. 2. Cardiomegaly with predominantly right-sided chamber enlargement. 3. Coronary artery calcifications and mild ectasia of the ascending thoracic aorta. 4. Bibasilar scar or atelectasis. Otherwise clear lungs. WILLARD BARRERA MD Dec 19, 2019 08:55
[2019-12-19] MEDS ORDERED: METOPROLOL SUCC 24HR ER 25 MG TAB.ER.24H. PO SCH (09:30)
[2019-12-19] MEDS ORDERED: ASPI-612 PO (09:44)
[2019-12-19] MEDS ORDERED: DILT120C99 PO (09:44)
[2019-12-19] MEDS ORDERED: LEVO500T59 PO (09:44)
[2019-12-19] MEDS ORDERED: ATOR20TA58 PO (09:44)
[2019-12-19] MEDS ORDERED: CARV3.1210 PO (09:44)
[2019-12-19] MEDS ORDERED: POTA20TA4 PO (09:44)
[2019-12-19] MEDS ORDERED: FURO20TA3 PO (09:44)
--- NOTE | 2019-12-19 09:53 | PDOC3 ---
Discharge Summary Visit Information Date of Admission: Dec 17, 2019 Date of Discharge: Dec 19, 2019 Admitting Diagnosis: Acute Right sided congestive heart failure Final Diagnosis Problems Medical Problems: (1) Fluid overload Status: Acute Brief Hospital Course Allergies Allergies Coded Allergies Type Severity Reaction Last Updated Verified Penicillins Allergy Intermediate Unknown 12/02/19 Yes Vital Signs Vital Signs Date Time Temp Pulse Resp B/P (MAP) Pulse Ox O2 Delivery O2 Flow Rate FiO2 12/19/19 08:43 101 163/86 12/19/19 08:10 92 Nasal Cannula 2.0 12/19/19 07:00 97.6 16 97.6 Lab Results Laboratory Tests Test 12/17/19 10:55 12/17/19 15:15 12/17/19 17:55 12/18/19 09:30 White Blood Count 8.0 x10^3/uL (4.0-11.0) Red Blood Count 5.22 x10^6/uL (4.30-5.70) Hemoglobin 16.6 g/dL (13.0-17.5) Hematocrit 48.9 % (39.0-53.0) Mean Corpuscular Volume 94 fL (79-100) Mean Corpuscular Hemoglobin 32 pg (25-35) Mean Corpuscular Hemoglobin Concent 34 g/dL (31-37) Red Cell Distribution Width 14.3 % (11.5-14.5) Platelet Count 176 x10^3/uL (140-400) Neutrophils (%) (Auto) 67 % (31-73) Lymphocytes (%) (Auto) 19 % (24-48) Monocytes (%) (Auto) 11 % (0-9) Eosinophils (%) (Auto) 3 % (0-3) Basophils (%) (Auto) 2 % (0-3) Neutrophils # (Auto) 5.3 x10^3/uL (1.8-7.7) Lymphocytes # (Auto) 1.5 x10^3/uL (1.0-4.8) Monocytes # (Auto) 0.9 x10^3/uL (0.0-1.1) Eosinophils # (Auto) 0.2 x10^3/uL (0.0-0.7) Basophils # (Auto) 0.1 x10^3/uL (0.0-0.2) Prothrombin Time 14.1 SEC (11.7-14.0) Prothromb Time International Ratio 1.1 (0.8-1.1) Sodium Level 143 mmol/L (136-145) 142 mmol/L (136-145) Potassium Level 4.2 mmol/L (3.5-5.1) 4.5 mmol/L (3.5-5.1) Chloride Level 106 mmol/L (98-107) 103 mmol/L (98-107) Carbon Dioxide Level 30 mmol/L (21-32) 32 mmol/L (21-32) Anion Gap 7 (6-14) 7 (6-14) Blood Urea Nitrogen 18 mg/dL (8-26) 17 mg/dL (8-26) Creatinine 1.2 mg/dL (0.7-1.3) 1.3 mg/dL (0.7-1.3) Estimated GFR (Cockcroft-Gault) 62.4 56.9 BUN/Creatinine Ratio 15 (6-20) Glucose Level 112 mg/dL (70-99) 144 mg/dL (70-99) Calcium Level 9.0 mg/dL (8.5-10.1) 9.4 mg/dL (8.5-10.1) Total Bilirubin 0.5 mg/dL (0.2-1.0) Aspartate Amino Transf (AST/SGOT) 32 U/L (15-37) Alanine Aminotransferase (ALT/SGPT) 42 U/L (16-63) Alkaline Phosphatase 79 U/L (46-116) Troponin I Quantitative < 0.017 ng/mL (0.000-0.055) 0.045 ng/mL (0.000-0.055) < 0.017 ng/mL (0.000-0.055) NN-Pbp-G-Type Natriuretic Peptide 2786 pg/mL (0-124) Total Protein 6.8 g/dL (6.4-8.2) Albumin 2.8 g/dL (3.4-5.0) Albumin/Globulin Ratio 0.7 (1.0-1.7) Triglycerides Level 86 mg/dL (0-150) Cholesterol Level 103 mg/dL (0-200) LDL Cholesterol, Calculated 52 mg/dL (0-100) VLDL Cholesterol, Calculated 17 mg/dL (0-40) Non-HDL Cholesterol Calculated 69 mg/dL (0-129) HDL Cholesterol 34 mg/dL (40-60) Cholesterol/HDL Ratio 3.0 Procalcitonin < 0.10 ng/mL (0.00-0.10) Thyroid Stimulating Hormone (TSH) 2.134 uIU/mL (0.358-3.74) Urine Opiates Screen Neg (NEG) Urine Methadone Screen Neg (NEG) Urine Barbiturates Neg (NEG) Urine Phencyclidine Screen Neg (NEG) Urine Amphetamine/Methamphetamine Pos (NEG) Urine Benzodiazepines Screen Neg (NEG) Urine Cocaine Screen Neg (NEG) Urine Cannabinoids Screen Neg (NEG) Ethyl Alcohol Level < 10 mg/dL (0-10) Urine Ethyl Alcohol Neg (NEG) Magnesium Level 1.7 mg/dL (1.8-2.4) Brief Hospital Course Mr Spencer is a 59yo M w/ PMHx Hypertension, smoker, 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 Now has associated orthopnea and PND. Has a dry, non- productive cough. He has not been taking his meds for HTN. No fever no infectious symptoms he is not having any sweats or chills either. Occasionally having sharp chest pain on the left. He notes he has been experiencing dizziness lately with his coughs as well and states he thinks he passed out a few weeks ago. He notes he drank heavily until 5 years ago, but still drinks nearly daily currently. He notes this past Sunday12/12/2019 he saw a disability physician for examination and was instructed to head straight to the ED. Historically he gives a non-linear history, states he has been seen by pulmonology and cardiology, but is not aware of any diagnosis of CHF, CAD, or COPD. States his last stress test was at [facility] 2 years ago, but notes he has been at [facility] and [facility] as well in the past 2 years for similar symptoms. In ED his BNP was 2786. CXR with bilateral edema and read as right middle lobe infiltrate. Troponin negative. UDS positive for amphetamines. EKG with rate of 105 there was no STEMI there were some ST changes anteriorly, and a repeat EKG showed HR 153, was given diltiazem bolus and infusion for concern for atrial flutter. 12/17: Still on diltiazem GTT at 5mg/hr. He feels fluttering in his chest now, HR 105. Good urine output, swelling improved. RVSP 57 and enlarged right ventricle and right sided heart failure on echo. CTPA negative for embolic disease Overnight feeling better, he states he does not sleep well in general. Discussed right sided CHF symptoms with him. He is less swollen, less short of breath. HR still elevated. Consults: Cardiology and Pulmonology Problem list: Shortness of breath - multifactorial, reactive airway disease/COPD with smoking history as well as findings consistent with pulmonary edema from right sided CHF and lobar pneumonia Acute right sided congestive heart failure - RVSP 57 and enlarged right ventricle and right sided heart failure on echo, left ventricular EF 55% Pulm HTN - negative for acute PE, has some pulmonary disease, likely from prior IVDA, amphetamine use, smoking. Chest pain - likely from acute CHF exacerbation and possible costochondritis from bronchitis. negative trend on troponins Atrial tachyarrhythmia - possibly atrial flutter. 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 Counseled that this is not sustained remission h/o Hep C s/p SVR with [facility] in 2017 - notes he has had viral titres that were negative 3 years ago. Plan: Now improved from acute CHF, initiating BB may be appropriate. Needs CHF and primary care f/u. Can f/u at [facility] and [facility] or [facility], which are nearby. Greater than 30 minutes spent on d/c Discharge Information Condition at Discharge: Improved Follow Up: Weeks (1) Disposition/Orders: D/C to Home Scheduled Aspirin (Aspirin Ec) 81 Mg Tablet., 81 MG PO DAILYWBKFT for CHF for 90 Days, #90 Ref 3 Prescribed by: WILLADR BARRERA MD on 12/19/19 0944 Atorvastatin Calcium (Atorvastatin Calcium) 20 Mg Tablet, 20 MG PO QHS for HLD/CHF for 90 Days, #90 Ref 3 Prescribed by: WILLARD BARRERA MD on 12/19/19 0944 Carvedilol (Carvedilol ) 3.125 Mg Tablet, 3.125 MG PO BIDWMEALS for CHF for 90 Days, #180 Ref 3 Prescribed by: WILLARD BARRERA MD on 12/19/19 0944 Diltiazem Hcl (Diltiazem 24HR Cd) 120 Mg Cap.er.24h, 120 MG PO DAILY for Tachycardia/HTN for 90 Days, #90 Ref 3 Prescribed by: WILLARD BARRERA MD on 12/19/19 0944 Furosemide (Furosemide) 20 Mg Tablet, 1 TAB PO DAILY for Swelling/3 lb weight gain for 30 Days, #30 Ref 0 Prescribed by: WILLARD BARRERA MD on 12/19/19 0944 Levofloxacin (Levaquin) 500 Mg Tablet, 500 MG PO DAILY06 for Pneumonia for 5 Days, #5 Prescribed by: WILLARD BARRERA MD on 12/19/19 0944 Potassium Chloride (Klor-Con M20) 20 Meq Tab.er.prt, 20 MEQ PO DAILYWBKFT for To take with Furosemide for 30 Days, #30 Prescribed by: WILLARD BARRERA MD on 12/19/1942 WILLARD BARRERA MD Dec 19, 2019 09:53
[2019-12-19] MEDS ORDERED: CARVEDILOL 3.125 MG TABLET. PO SCH (10:00)
[2019-12-19 10:12] LABS: CALCIUM 9.4 mg/dL (8.5-10.1); CREATININE 1.4 mg/dL (0.7-1.3); GFR 52.2; MAGNESIUM 1.8 mg/dL (1.8-2.4)
[2019-12-19 10:59] VITALS: BP 127/81
[2019-12-19 15:00] VITALS: BP 141/78
--- NOTE | 2019-12-19 16:29 | PDOC ---
PULMONARY PROGRESS NOTES Subjective PT FEELS BETTER LESS SOA Vitals Vital Signs Date Time Temp Pulse Resp B/P (MAP) Pulse Ox O2 Delivery O2 Flow Rate FiO2 12/19/19 15:57 Nasal Cannula 2.0 12/19/19 15:00 97.3 90 18 141/78 (99) 93 97.3 ROS: No Nausea, No Chest Pain, No Abdominal Pain, No Increase Cough General: Alert Lungs: Crackles Cardiovascular: S1, S2 Abdomen: Soft Neuro Exam: Alert Extremities: Other (EDEMA) Skin: Warm Labs Laboratory Tests Test 12/17/19 17:55 12/18/19 09:30 12/19/19 09:20 Troponin I Quantitative < 0.017 ng/mL (0.000-0.055) Sodium Level 142 mmol/L (136-145) 139 mmol/L (136-145) Potassium Level 4.5 mmol/L (3.5-5.1) 4.0 mmol/L (3.5-5.1) Chloride Level 103 mmol/L (98-107) 100 mmol/L (98-107) Carbon Dioxide Level 32 mmol/L (21-32) 30 mmol/L (21-32) Anion Gap 7 (6-14) 9 (6-14) Blood Urea Nitrogen 17 mg/dL (8-26) 19 mg/dL (8-26) Creatinine 1.3 mg/dL (0.7-1.3) 1.4 mg/dL (0.7-1.3) Estimated GFR (Cockcroft-Gault) 56.9 52.2 Glucose Level 144 mg/dL (70-99) 153 mg/dL (70-99) Calcium Level 9.4 mg/dL (8.5-10.1) 9.4 mg/dL (8.5-10.1) Magnesium Level 1.7 mg/dL (1.8-2.4) 1.8 mg/dL (1.8-2.4) Laboratory Tests Test 12/19/19 09:20 Sodium Level 139 mmol/L (136-145) Potassium Level 4.0 mmol/L (3.5-5.1) Chloride Level 100 mmol/L (98-107) Carbon Dioxide Level 30 mmol/L (21-32) Anion Gap 9 (6-14) Blood Urea Nitrogen 19 mg/dL (8-26) Creatinine 1.4 mg/dL (0.7-1.3) Estimated GFR (Cockcroft-Gault) 52.2 Glucose Level 153 mg/dL (70-99) Calcium Level 9.4 mg/dL (8.5-10.1) Magnesium Level 1.8 mg/dL (1.8-2.4) Medications Active Scripts Medications Dose Route/Sig Max Daily Dose Days Date Category Furosemide 20 Mg Tablet 1 Tab PO DAILY 30 12/19/19 Rx Klor-Con M20 (Potassium Chloride) 20 Meq Tab.er.prt 20 Meq PO DAILYWBKFT 30 12/19/19 Rx Aspirin Ec (Aspirin) 81 Mg Tablet.dr 81 Mg PO DAILYWBKFT 90 12/19/19 Rx Diltiazem 24HR Cd (Diltiazem Hcl) 120 Mg Cap.er.24h 120 Mg PO DAILY 90 12/19/19 Rx Carvedilol (Carvedilol) 3.125 Mg Tablet 3.125 Mg PO BIDWMEALS 90 12/19/19 Rx Atorvastatin Calcium 20 Mg Tablet 20 Mg PO QHS 90 12/19/19 Rx Levaquin (Levofloxacin) 500 Mg Tablet 500 Mg PO DAILY06 5 12/19/19 Rx Impression . IMPRESSION: 1. Acute hypoxemic respiratory failure. 2. Acute on chronic systolic heart failure. 3. Chest pain. 4. Possible pneumonia. 5. Arrhythmia. 6. Acute exacerbation of chronic obstructive pulmonary disease. 7. Tobacco abuse. 8. Positive drug screen for methamphetamine. Plan . DC OK BY TORREY LARA MD Dec 19, 2019 16:29
[2019-12-19] MEDS ORDERED: LACTOBACILLUS RHAMNOSUS GG 1 CAPSULE. PO SCH (21:00)
== END 2019-12-19 16:48 | disposition home or self-care (01) | DRG 291 ==
LOC: ER 10:20 → 2 SOUTH 11:53
PROVIDERS: ADMIT Internal Medicine; ATTEND Internal Medicine
DX: I11.0 Hypertensive heart disease with heart failure (principal); J96.01 Acute respiratory failure with hypoxia; J18.9 Pneumonia, unspecified organism; J44.1 Chronic obstructive pulmonary disease with (acute) exacerbation; I48.92 Unspecified atrial flutter; J44.0 Chronic obstructive pulmonary disease with (acute) lower respiratory infection; I50.23 Acute on chronic systolic (congestive) heart failure; F17.210 Nicotine dependence, cigarettes, uncomplicated; F32.9 Major depressive disorder, single episode, unspecified; F41.9 Anxiety disorder, unspecified; M19.90 Unspecified osteoarthritis, unspecified site; F10.11 Alcohol abuse, in remission; E11.9 Type 2 diabetes mellitus without complications; I25.10 Atherosclerotic heart disease of native coronary artery without angina pectoris; F19.10 Other psychoactive substance abuse, uncomplicated; F12.90 Cannabis use, unspecified, uncomplicated; F15.90 Other stimulant use, unspecified, uncomplicated; B19.20 Unspecified viral hepatitis C without hepatic coma; K74.60 Unspecified cirrhosis of liver; I50.82 Biventricular heart failure; I27.20 Pulmonary hypertension, unspecified; Z91.19 Patient's noncompliance with other medical treatment and regimen; Z91.14 Patient's other noncompliance with medication regimen; Z89.429 Acquired absence of other toe(s), unspecified side; Z83.3 Family history of diabetes mellitus; Z82.49 Family history of ischemic heart disease and other diseases of the circulatory system; Z88.0 Allergy status to penicillin
CPT/HCPCS: 36415; 71045; 71275; 80048; 80053; 80061; 80307; 83735; 83880; 84145; 84443; 84484; 85025; 85610; 93005; 93306; 94640; 94760; 96374; 96375; G0480; J1940; J2060; J3475; J3490; Q9967; 99285-25; G0378